=== PATIENT | male | born 1940 | race Caucasian/White ===

== ENCOUNTER 2024-12-08 00:22 | Inpatient (IN) ==
--- NOTE | 2024-12-08 01:10 | Emergency Department Note ---
Impression & Plan Acute upper GI bleed, Orthostasis, Acute hypotension, Elevated troponin Admit to the [facility] ED Provider Note NAME: ELY SHELTON AGE: 84 SEX: Male INFORMANT: Patient ED PROVIDER(S): Savana Ruvalcaba DO CHIEF COMPLAINT: near syncope and hypotension PLAN: Disposition: Admit to the [facility] MEDICAL DECISION MAKING: this is an 84-year-old male patient who presents to the emergency department with episodes of near syncope and hypotension. Patient explains that every time he sits up or stands up he becomes extremely lightheaded and nearly passes out. The symptoms are new for the patient today. He does describe decreased oral intake today but otherwise his fluid intake have been normal. He denies any new medications. He denies any diarrhea or discoloration to his stools. Laboratory studies upper respiratory bio fire testing was negative. White blood cell count was 11.1. Hemoglobin was low at 9.7. Platelet count was 126. BUN was 98 and creatinine was 1.98 which is concerning for significant dehydration and/or GI bleeding. Glucose was 217. Troponin was elevated at 33.5. EKG was performed and revealed A-fib with rapid ventricular response. The patient does have a history of atrial fibrillation and takes Eliquis. Patient has extreme orthostasis, especially upon standing when blood pressure drops as low as 60/40. Patient was bolused with a total of 1500ml of normal saline solution successful. Patient was typed and screened for packed red blood cells. Patient was given a dose of IV Pepcid and IV Protonix. Rectal exam revealed melena. I discussed the case with the [facility]ist and they will evaluate for further inpatient care. They requested CT scanning of the abdomen/pelvis which is pending. Care/management discussed with: textile conversion manager and [facility] Triage Nursing notes: reviewed and agree with them. Vital Signs: reviewed and remarkable for hypotension Additional History obtained from: Patient's who is at the bedside Chronic Medical/Social Conditions affecting care: Atrial fibrillation on Eliquis Differential Diagnosis: Orthostasis, medication side effects, dehydration, GI bleeding, cardiac dysrhythmia, cardiac ischemia Diagnostics, independently interpreted by me: ECG: atrial fibrillation with a rapid ventricular response at a rate of [address] segment elevation or signs of ischemia Cardiac Monitoring: A-fib at a rate of 98 Imaging studies: CT scan of the abdomen/pelvis: Pending HPI: 84 year old Male arrives for evaluation of near syncope and hypotension. around noontime yesterday, the patient developed some nausea and abdominal cramping. He noted that every time he stood up he developed lightheadedness and nearly passed out. Tonight, the patient attempted to get up to go to the bathroom and was so weak that he almost passed out. EMS was called and when they tried to stand the patient up, his blood pressure dropped to 60/40 and he was near syncopal. PAST MEDICAL HISTORY: See Below, PAST SURGICAL HISTORY: See Below, SOCIAL HISTORY: See Below, HOME MEDICATIONS: See list ALLERGIES: None VITALS: See Below PHYSICAL EXAMINATION: HEENT: Head - normocephalic and atraumatic. Pupils are equal, round, and reactive to light. Extraocular eye muscles are intact, and sclera are anicteric. Nose - moist nasal mucosa without discharge. Mouth - moist buccal mucosa. Oropharynx is nonerythematous and there is no tonsillar exudate or edema noted. Neck: Supple; no JVD or cervical lymphadenopathy Heart: irregularly irregular rhythm There is a normal S1 and S2 with no murmurs, clicks, or gallops appreciated. Lungs: Clear to auscultation bilaterally with no wheezes, rales, or rhonchi. Abdomen: Soft, completely nontender, nondistended, with good bowel sounds. There are no palpable pulsatile masses or hepatosplenomegaly. There is no guarding, rigidity, or rebound noted. Extremities: No evidence of cyanosis, clubbing, or edema. There are easily palpable peripheral pulses. Skin: Pale,warm and dry with good turgor and no rashes. Emergency department treatment: teletypesetter monitor, IV normal saline bolus, type and cross, IV Protonix, IV Pepcid Emergency Department course: The patient was evaluated in room A-2. A complete history and physical was performed. An order was placed for continuous cardiac monitoring. Patient was in atrial fibrillation at a rate of 98. Twelve-lead EKG was obtained. Patient was significantly hypotensive at times and was bolused with a total of 1500 cc of saline. With any type of change in body position, the patient will become orthostatic. Heme testing of the patient's stools were positive for melena. The patient was typed and screened for blood. I reviewed results with the patient and his . He was given a dose of IV Pepcid and IV Protonix. I discussed the case with the [facility] Hospitalist and they will evaluate for further inpatient care. Past Med/Surg History Problem List (Updated 12/08/24 @ 18:08 by Savana Ruvalcaba DO) Elevated troponin (Acute) Acute hypotension (Acute) Orthostasis (Acute) Acute upper GI bleed (Acute) Coffee ground emesis Melena Near syncope Upper GI bleed Orthostatic hypotension Medical History Type 2 diabetes mellitus diet controlled, no meds Constipation Atrial fibrillation dx Jun 2024 s/p mitral repair > no pacer > follows with Dr. 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 > [facility] [place]x [place] valve [place] [facility] 02, [address] Social History Smoking Status: Never smoker Second Hand Exposure: No; Do You Dip or Chew Tobacco: No; Hx Alcohol Use: Yes Hx Substance Use: No Preferred Language: Ukrainian Communication Ability: Effective Veterinary Meat Inspector Required: No Beliefs That Will Affect Care: None Current Living Situation: Other Current Living Situation Comment: [facility] with current occupation: Retired Other Information That Helps Us Care for You: No Feels Safe at Home: Yes Safety Concerns: Feels Safe At This Time Assistive Devices: None Allergies Allergies Allergy/AdvReac Type Severity Reaction Status Date / Time No Known Allergies Allergy Verified 10/27/24 06:20 Home Meds Home Medications Medication Instructions Recorded Confirmed allopurinol 300 mg tablet 300 mg PO QAM 10/07/24 10/27/24 apixaban 2.5 mg tablet (Eliquis) 2.5 mg PO BID 10/07/24 10/27/24 ascorbic acid (vitamin C) 1,000 mg 1 g PO QAM 10/07/24 10/27/24 tablet (Vitamin C) atorvastatin 80 mg tablet 80 mg PO HS 10/07/24 10/27/24 losartan 25 mg tablet 25 mg PO PM 10/07/24 10/27/24 metoprolol succinate 25 mg 12.5 mg PO HS 10/07/24 10/27/24 tablet,extended release 24 hr ujrjkpuo-pjb-khhbia 5 mg-zeaxanth 1 cap PO QAM 10/07/24 10/27/24 1 mg-bilberry 7.5 mg-herbal capsule (Macular Health Formula) zgdijgnr-[id number] 300 mcg-K 60 1 tab PO QAM 10/07/24 10/27/24 mcg-lycop 600 mcg-lutein 300 mcg tablet (Centrum Silver Men) psyllium seed (sugar) oral powder 1 tbsp PO PM 10/07/24 10/20/24 (Metamucil (sugar) oral powder) ranolazine 500 mg tablet,extended 500 mg PO BID 10/07/24 10/27/24 release,12 hr Results & Data (ED) Vital Signs Vital Signs - 24 hr 12/08/24 00:18 12/08/24 00:18 12/08/24 00:18 Temperature 36.4 C L 36.4 C L Temperature Source Oral Oral Pulse Rate 89 Pulse Rate [Right Finger] 91 H Pulse Rate from SpO2 Sensor Pulse Rhythm Irregular Pulse Rhythm [Right Finger] Irregular Pulse Strength Normal Pulse Strength [Right Finger] Normal Respiratory Rate 18 18 Respiratory Effort / Characteristics Non-Labored Spontaneous Non-Labored Spontaneous Respiratory Depth Normal Normal Respiratory Pattern Regular Regular Blood Pressure 122/87 Blood Pressure [Right Arm] 122/87 Blood Pressure Mean 98 Blood Pressure Mean [Right Arm] 98 Blood Pressure Position Lying Blood Pressure Position [Right Arm] Lying Pulse Oximetry 98 98 Oxygen Delivery Method Room Air Room Air Room Air Sepsis Recent Fever Within 48 Hours No Sepsis New/Unexplained Change in Mental Status No Sepsis Action Taken by Nursing No Action Required 12/08/24 00:27 12/08/24 00:31 12/08/24 00:31 Temperature Temperature Source Pulse Rate 101 H Pulse Rate [Right Finger] Pulse Rate from SpO2 Sensor Pulse Rhythm Pulse Rhythm [Right Finger] Pulse Strength Pulse Strength [Right Finger] Respiratory Rate Respiratory Effort / Characteristics Respiratory Depth Respiratory Pattern Blood Pressure 122/87 122/87 Blood Pressure [Right Arm] Blood Pressure Mean 88 88 Blood Pressure Mean [Right Arm] Blood Pressure Position Blood Pressure Position [Right Arm] Pulse Oximetry Oxygen Delivery Method Sepsis Recent Fever Within 48 Hours Sepsis New/Unexplained Change in Mental Status Sepsis Action Taken by Nursing 12/08/24 00:36 12/08/24 00:57 12/08/24 01:03 Temperature Temperature Source Pulse Rate 100 H 91 H Pulse Rate [Right Finger] Pulse Rate from SpO2 Sensor 85 89 Pulse Rhythm Pulse Rhythm [Right Finger] Pulse Strength Pulse Strength [Right Finger] Respiratory Rate 25 H 25 H Respiratory Effort / Characteristics Respiratory Depth Respiratory Pattern Blood Pressure 101/65 Blood Pressure [Right Arm] Blood Pressure Mean 76 Blood Pressure Mean [Right Arm] Blood Pressure Position Blood Pressure Position [Right Arm] Pulse Oximetry 100 99 Oxygen Delivery Method Sepsis Recent Fever Within 48 Hours Sepsis New/Unexplained Change in Mental Status Sepsis Action Taken by Nursing 12/08/24 01:03 12/08/24 01:03 12/08/24 01:06 Temperature Temperature Source Pulse Rate 92 H Pulse Rate [Right Finger] Pulse Rate from SpO2 Sensor 94 H Pulse Rhythm Pulse Rhythm [Right Finger] Pulse Strength Pulse Strength [Right Finger] Respiratory Rate 20 Respiratory Effort / Characteristics Respiratory Depth Respiratory Pattern Blood Pressure 101/65 101/65 Blood Pressure [Right Arm] Blood Pressure Mean 76 76 Blood Pressure Mean [Right Arm] Blood Pressure Position Blood Pressure Position [Right Arm] Pulse Oximetry 97 Oxygen Delivery Method Sepsis Recent Fever Within 48 Hours Sepsis New/Unexplained Change in Mental Status Sepsis Action Taken by Nursing 12/08/24 01:10 12/08/24 01:15 12/08/24 01:16 Temperature Temperature Source Pulse Rate 90 100 H Pulse Rate [Right Finger] Pulse Rate from SpO2 Sensor 96 H Pulse Rhythm Regular Pulse Rhythm [Right Finger] Pulse Strength Pulse Strength [Right Finger] Respiratory Rate 18 20 Respiratory Effort / Characteristics Respiratory Depth Respiratory Pattern Blood Pressure 91/33 L Blood Pressure [Right Arm] Blood Pressure Mean 63 Blood Pressure Mean [Right Arm] Blood Pressure Position Blood Pressure Position [Right Arm] Pulse Oximetry 98 98 Oxygen Delivery Method Room Air Sepsis Recent Fever Within 48 Hours Sepsis New/Unexplained Change in Mental Status Sepsis Action Taken by Nursing 12/08/24 01:18 12/08/24 01:29 12/08/24 01:30 Temperature Temperature Source Pulse Rate 89 105 H Pulse Rate [Right Finger] Pulse Rate from SpO2 Sensor 94 H 82 Pulse Rhythm Pulse Rhythm [Right Finger] Pulse Strength Pulse Strength [Right Finger] Respiratory Rate 27 H 23 Respiratory Effort / Characteristics Respiratory Depth Respiratory Pattern Blood Pressure 89/64 L Blood Pressure [Right Arm] Blood Pressure Mean 67 Blood Pressure Mean [Right Arm] Blood Pressure Position Blood Pressure Position [Right Arm] Pulse Oximetry 97 99 Oxygen Delivery Method Sepsis Recent Fever Within 48 Hours Sepsis New/Unexplained Change in Mental Status Sepsis Action Taken by Nursing 12/08/24 01:30 12/08/24 02:18 Temperature Temperature Source Pulse Rate Pulse Rate [Right Finger] 98 H Pulse Rate from SpO2 Sensor Pulse Rhythm Pulse Rhythm [Right Finger] Regular Pulse Strength Pulse Strength [Right Finger] Normal Respiratory Rate 18 Respiratory Effort / Characteristics Non-Labored Spontaneous Respiratory Depth Normal Respiratory Pattern Regular Blood Pressure 105/57 L Blood Pressure [Right Arm] 108/48 L Blood Pressure Mean 71 Blood Pressure Mean [Right Arm] 68 Blood Pressure Position Blood Pressure Position [Right Arm] Lying Pulse Oximetry 98 Oxygen Delivery Method Room Air Sepsis Recent Fever Within 48 Hours Sepsis New/Unexplained Change in Mental Status Sepsis Action Taken by Nursing Laboratory Data 12/08/24 11:50 12/08/24 00:30 Lab Results 12/08/24 12/08/24 12/08/24 Range/Units 00:30 01:04 02:52 WBC 11.13 H (4.8-10.8) K/ul RBC 3.00 L (4.70-6.10) M/uL Hgb 9.7 L (14.0-18.0) g/dl Hct 29.1 L (42.0-52.0) % MCV 97.0 (80.0-100.0) fL MCH 32.3 (25.0-34.0) pg MCHC 33.3 (32.0-36.0) g/dL RDW Std Deviation 51.2 H (36.4-46.3) fL RDW Coeff of Jeanmarie 14.6 H (11.5-14.5) % Plt Count 126 L (130-400) K/uL MPV 11.8 (9.4-12.4) fL Immature Gran % (Auto) 0.4 % Neut % (Auto) 75.9 % Lymph % (Auto) 17.1 % [place] % (Auto) 6.1 % Eos % (Auto) 0.1 % Baso % (Auto) 0.4 % Neut # (Auto) 8.45 H (1.40-6.50) K/uL Lymph # (Auto) 1.90 (1.20-3.40) K/uL [place] # (Auto) 0.68 H (0.11-0.59) K/uL Eos # (Auto) 0.01 (0.00-0.50) K/uL Baso # (Auto) 0.04 (0.00-0.20) K/uL Immature Gran # (Auto) 0.05 (0.01-0.20) K/uL Sodium 141 (136-145) mmol/L Potassium 5.2 H (3.5-5.1) mmol/L Chloride 111 H (98-107) mmol/L Carbon Dioxide 23 (21-32) mmol/L Anion Gap 7 (3-11) BUN 98 H (6-23) mg/dl Creatinine 1.98 H (0.6-1.4) mg/dl Est Cr Clr Drug Dosing 15.0 ml/min eGFR 32.49 BUN/Creatinine Ratio 49.5 H (10-20) Glucose 217 H (70-99(Fasting)) mg/dl Calcium 9.0 (8.6-10.3) mg/dl Magnesium 1.8 (1.7-2.4) mg/dl Total Bilirubin 1.1 H (0.2-1.0) mg/dl AST 13 (13-39) U/L ALT 12 (7-52) U/L Alkaline Phosphatase 59 (34-104) U/L Troponin I High Sens 33.5 H 41.9 H (0-20) pg/ml Total Protein 5.2 L (6.0-8.3) gm/dl Albumin 3.4 (3.4-5.0) gm/dl Globulin 1.8 L (2.5-4.0) gm/dl Albumin/Globulin Ratio 1.9 (0.9-2) Urine Color Yellow Urine Appearance Clear (Clear) Urine pH 7.0 (4.5-7.5) Ur Specific [place] 1.017 (1.000-1.030) Urine Protein 1+ H (Negative) Urine Glucose (UA) Negative (Negative) Urine Ketones Negative (Negative) Urine Blood Negative (Negative) Urine Nitrite Negative (Negative) Urine Bilirubin Negative (Negative) Urine Urobilinogen Negative (Negative) Ur Leukocyte Esterase Negative (Negative) Urine WBC (Auto) 0-5 (0-5) /hpf Urine RBC (Auto) 0-2 (0-2) /hpf U Hyaline Cast (Auto) 0-2 (0-2) /lpf U Epithel Cells (Auto) 0-2 (0-2) /hpf Urine Bacteria (Auto) None Seen (None Seen) Adenovirus (PCR) Not Detected (NotDetected) B. pertussis DNA (PCR) Not Detected (NotDetected) B.parapertussis DNA PCR Not Detected (NotDetected) C. pneumoniae DNA (PCR) Not Detected (NotDetected) Coronavirus OC43 (PCR) Not Detected (NotDetected) Coronavirus HKU1 (PCR) Not Detected (NotDetected) Coronavirus 229E (PCR) Not Detected (NotDetected) SARS-CoV-2 (PCR) Not Detected (NotDetected) Coronavirus NL63 (PCR) Not Detected (NotDetected) Human Metapneumovir PCR Not Detected (NotDetected) Influenza Type A (PCR) Not Detected (NotDetected) Influenza Type B (PCR) Not Detected (NotDetected) M. pneumoniae (PCR) Not Detected (NotDetected) Parainfluenza 1 (PCR) Not Detected (NotDetected) Parainfluenza 2 (PCR) Not Detected (NotDetected) Parainfluenza 3 (PCR) Not Detected (NotDetected) Parainfluenza 4 (PCR) Not Detected (NotDetected) RSV (PCR) Not Detected (NotDetected) Entero/Rhino (PCR) Not Detected (NotDetected) Administered Medications Pantoprazole Sodium 40 mg/ (Dextrose) 100 mls @ 20 mls/hr IV Q5H [facility] Stop: 01/07/25 05:59 Last Admin: 12/08/24 15:28 Dose: 8 mg/hr, 20 mls/hr Documented By: Infusion: 12/08/24 15:28 Dose: Infused Documented By: Admin: 12/08/24 11:07 Dose: 8 mg/hr, 20 mls/hr Documented By: Infusion: 12/08/24 11:04 Dose: Infused Documented By: Admin: 12/08/24 06:04 Dose: 8 mg/hr, 20 mls/hr Documented By: EVY Famotidine (Pepcid 20mg Iv Push) 20 mg in 5 mls @ 2.5 mls/min IV Q12H [facility]N Stop: 01/07/25 17:59 Last Admin: 12/08/24 17:34 Dose: 2.5 mls/min Documented By: MICHELLE Sodium Chloride (Nss) 1,000 mls @ 80 mls/hr IV .[id number] CYN Stop: 12/09/24 05:20 Last Admin: 12/08/24 17:27 Dose: 80 mls/hr Documented By: Infusion: 12/08/24 17:27 Dose: Infused Documented By: Admin: 12/08/24 06:06 Dose: 80 mls/hr Documented By: EVY Discontinued Medications Sodium Chloride (Nss) 1,000 mls @ 999 mls/hr IV .Q1H1M ONE Stop: 12/08/24 02:51 Last Infusion: 12/08/24 03:15 Dose: Infused Documented By: IDWendy Admin: 12/08/24 01:55 Dose: 999 mls/hr Documented By: LEO Pantoprazole Sodium 80 mg/ (Dextrose) 120 mls @ 480 mls/hr IV ONE STA Stop: 12/08/24 03:01 Last Infusion: 12/08/24 04:37 Dose: Infused Documented By: Admin: 12/08/24 04:21 Dose: 480 mls/hr Documented By: BRENDAN Famotidine (Pepcid 20mg Iv Push) 20 mg in 5 mls @ 2.5 mls/min IV NOW STA Stop: 12/08/24 02:48 Last Admin: 12/08/24 04:21 Dose: 2.5 mls/min Documented By: BRENDAN Sodium Chloride (Nss) 1,000 mls @ 999 mls/hr IV .Q1H1M CYN Stop: 12/08/24 05:45 Last Infusion: 12/08/24 05:38 Dose: Infused Documented By: Admin: 12/08/24 04:43 Dose: 999 mls/hr Documented By: YING Ondansetron HCl (Ondansetron Inj 2 Mg/Ml 2 Ml Vial) Confirm Administered Dose 4 mg .ROUTE .STK-MED ONE Stop: 12/08/24 04:03 Last Admin: 12/08/24 04:42 Dose: 4 mg Documented By: YING Ondansetron HCl (Ondansetron Inj 2 Mg/Ml 2 Ml Vial) 4 mg IV NOW STA Stop: 12/08/24 04:41 Last Admin: 12/08/24 04:44 Dose: Not Given Documented By: YING Imaging Data Radiologist's Impression: Abdomen/Pelvis CT 12/08/24 02:34 EXAM: CT abd pelvis wo con CLINICAL HISTORY: ANEMIA TECHNIQUE: Contiguous axial images were obtained from the level of the diaphragm to the pubic symphysis without intravenous or oral contrast. Coronal and sagittal reconstructions were likewise performed and indicated to increase the sensitivity for detecting clinically relevant pathology. CT scan was performed according to ALARA (as low as reasonable achievable). COMPARISON: No FINDINGS: The visualized lung bases show mild cardiomegaly. Evaluation of the abdominal and pelvic visceral organs is limited without intravenous contrast. The unenhanced liver, spleen, pancreas, and adrenal glands are grossly unremarkable. Few calcific foci noted in the tail of pancreas. Small splenunculus along lower pole of spleen. The gallbladder is present. The kidneys are normal in size and attenuation without obvious calcification. Dilated and tortuous left ureter with mild left hydronephrosis and renal cortical thinning. Bilateral perinephric stranding. Large exophytic cortical cyst of size 4.0 x 4.8cm along the lower pole of left kidney. Mildly prominent left distal ureter. No adenopathy or fluid collections are seen. No evidence of focal or diffuse bowel wall thickening or evidence of bowel obstruction is seen. The appendix is visualized in the right lower quadrant and appears within normal limits. The aorta is normal in caliber. The urinary bladder is normal in contour. Mild eccenteric wall thickening noted along the base of bladder predominantly on left side. Pelvic viscera are grossly unremarkable. No aggressive appearing osseous lesions are identified. IMPRESSION: 1. Eccenteric wall thickening of base of bladder predominantly on left side. Suggest- Correlation with ultrasound of distended bladder. 2. Left moderate to gross hydroureteronephrosis with no radiodense left ureteric calculus. 3. Bilateral perinephric stranding. 4. Left renal exophytic cortical cyst at lower pole. Electronically signed by Young Corea 12-08-2024 06:18 AM Discharge Plan Visit Data Chief Complaint: Syncope Stated Complaint: SYNCOPE, HYPOTENSION ED Provider: Savana Ruvalcaba Discharge Problem: Acute upper GI bleed, Orthostasis, Acute hypotension, Elevated troponin Patient Disposition: Admitted As Inpatient Discharge Instructions Interventions: ED Discharge Assessment Last Done: 12/08/24 04:25
[2024-12-08 01:25] LABS: Appearance Urine Clear (Clear); Bacteria Urine Automated None Seen (None Seen); Bilirubin Urine Negative (Negative); Blood Urine Negative (Negative); Cast Urine Automated 0-2 /lpf (0-2); Color Urine Yellow; Epithelial Cell Urine Auto 0-2 /hpf (0-2); Glucose Urine UA Negative (Negative); Ketones Urine Negative (Negative); Leukocyte Esterase Urine Negative (Negative); Nitrite Urine Negative (Negative); Protein Urine 1+ (Negative); RBC Urine Automated 0-2 /hpf (0-2); Specific Gravity Urine 1.017 (1.000-1.030); Urobilinogen Urine Negative (Negative); WBC Urine Automated 0-5 /hpf (0-5)
[2024-12-08 01:38] LABS: Basophils # (auto) 0.04 K/uL (0.00-0.20); Basophils % (auto) 0.4 %; Eosinophils # (auto) 0.01 K/uL (0.00-0.50); Eosinophils % (auto) 0.1 %; Hematocrit (blood only) 29.1 % (42.0-52.0); Hemoglobin 9.7 g/dl (14.0-18.0); Immature Granulocytes # (auto) 0.05 K/uL (0.01-0.20); Immature Granulocytes % (auto) 0.4 %; Lymphocytes % (auto) 17.1 %; Mean Corpuscular Hemoglobin 32.3 pg (25.0-34.0); Mean Corpuscular Hgb Conc 33.3 g/dL (32.0-36.0); Mean Platelet Volume 11.8 fL (9.4-12.4); Monocytes # (auto) 0.68 K/uL (0.11-0.59); Monocytes % (auto) 6.1 %; Neutrophils # (auto) 8.45 K/uL (1.40-6.50); Neutrophils % (auto) 75.9 %; Platelet Count 126 K/uL (130-400); RDW Coefficient of Variation 14.6 % (11.5-14.5); RDW Standard Deviation 51.2 fL (36.4-46.3); White Blood Count 11.13 K/ul (4.8-10.8)
[2024-12-08 01:41] LABS: Albumin Globulin Ratio 1.9 (0.9-2); Albumin Level 3.4 gm/dl (3.4-5.0); BUN Creatinine Ratio 49.5 (10-20); Bilirubin,Total 1.1 mg/dl (0.2-1.0); Globulin 1.8 gm/dl (2.5-4.0); Magnesium 1.8 mg/dl (1.7-2.4); Potassium 5.2 mmol/L (3.5-5.1); Total Protein 5.2 gm/dl (6.0-8.3)
[2024-12-08 01:48] LABS: Troponin I High Sensitivity 33.5 pg/ml (0-20)
[2024-12-08] MEDS: SODIUM CHLORIDE 0.9% 1,000 ML IV ONE (01:55)
[2024-12-08 02:17] LABS: Adenovirus PCR Not Detected (NotDetected); Bordetella parapertussis PCR Not Detected (NotDetected); Bordetella pertussis PCR Not Detected (NotDetected); Chlamydia pneumoniae PCR Not Detected (NotDetected); Coronavirus 229E PCR Not Detected (NotDetected); Coronavirus CoV-2 (COVID19)PCR Not Detected (NotDetected); Coronavirus HKU1 PCR Not Detected (NotDetected); Coronavirus NL63 PCR Not Detected (NotDetected); Coronavirus OC43PCR Not Detected (NotDetected); Human Metapneumovirus PCR Not Detected (NotDetected); Influenza A PCR Not Detected (NotDetected); Influenza B PCR Not Detected (NotDetected); Mycoplasma pneumoniae PCR Not Detected (NotDetected); Parainfluenza Virus 1 PCR Not Detected (NotDetected); Parainfluenza Virus 2 PCR Not Detected (NotDetected); Parainfluenza Virus 3 PCR Not Detected (NotDetected); Parainfluenza Virus 4 PCR Not Detected (NotDetected); Respiratory Syncytial VirusPCR Not Detected (NotDetected); Rhinovirus/Enterovirus PCR Not Detected (NotDetected)
--- NOTE | 2024-12-08 02:43 | History & Physical Report ---
"Date of Service December 08, 2024 Assessment & Plan (1) Type 2 diabetes mellitus: (2) Atrial fibrillation: (3) Hypertension: (4) Hyperlipidemia: (5) Orthostatic hypotension: (6) Upper GI bleed: (7) Near syncope: Plan Patient is an 84 y/o M w/ PMHx of Gout, HTN, HLD, CKD, A-fib after recent MV repair w/ MV clip implantation (on Eliquis), DM-2, and CAD (CABG x3) who was admitted due to significant orthostatism with subsequent near syncope today. 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 - CTAP also ordered to r/o retroperitoneal bleed give patient had been on Eliquis 2.5 mg bid for a-fib; still pending - Will admit patient to PCU - Place patient NPO - Protonix gtt started; also added pepcid bid IV - s/p 1L bolus x2 in the ED; Will give mIVF @ 80 ml/hr - H&H q6h to trend - Type and screen; Transfusion threshold of hgb <8 given current bleed and hypotension Blood consent taken and in patient's chart; Will hold 2 units PRBC - Will see about possibly reversing Eliquis effect - GI consulted. Would appreciate their input A-fib - Currently rate controlled - Will hold metoprolol in the setting of hypotension -Will hold Eliquis in the setting of UGIB Elevated troponins - Troponins of ~33 which increased to ~41 in 2-hr re-check - No chest pain or anginal sxs - Likely demand ischemia given hypotension and current UGIB - Will trend to peak HTN - Hold home meds DM-2 - No home insulin and not currently on meds - Will add Hgb A1c to am labs CKD - PCP office labs w/ Cr of 1.8; no other labs here to establish baseline - Cr on admission was 1.98 - Possible pre-renal MARLIN - Monitor am labs HLD | CAD - Hold atorvastatin while NPO Dispo: PCU Fluids: NSS @125 ml/hr Diet: NPO VTE ppx: SCD; chemoprophylaxis contraindicated in the setting of UGIB Code Status: DNR/DNI History of Present Illness Chief Complaint: Near syncope Primary Care Provider: Venus Tsang DO Patient is an 84 y/o M w/ PMHx of Gout, HTN, HLD, CKD, A-fib after recent MV repair w/ MV clip implantation (on Eliquis), DM-2, and CAD (CABG x3) who was arrived to the ED after experiencing near syncopal episode at home while walking to the bathroom. Patient states that, since early in the morning, patient had been feeling clammy, warm, and nauseous when standing. At around 7 pm, his symptoms worsened and when he was going to the bathroom developed nausea/diaphoresis/flushing/weakness and felt like he was going to pass out. On the days leading to this, patient had been having similar but more mild sxs, and states he had noted his stool had been darker than usual with today having a bm that was almost black. Denies having epigastric pain, decreased PO intake, fevers, chills, weakness on one side og his body, difficulty with speech, chest pain, SOB/[place], palpitations, or any other systemic sxs. ED Course: Given 1 L NSS bolus, Protonix 80 mg IV, Pepcid 20 mg IV; patient with episode of coffee ground emesis during my evaluation, after this 1L LR bolus given as well as dose of Zofran Labs/Imaging: CBC w/ leukocytosis of 11 with neutrophilic predominance, hgb of 9.7, plt of 126. CMP with no significant electrolyte abnormalities, Cr of 1.98, BUN of 98, and bsg of 217. Troponin of 33.5 which increased to 41.9 in 2-hour recheck. Respiratory biofire negative. CTAP ordered but not yet done at this time. Medical History: [Reviewed] Medications: [Reviewed] Surgical History: [Reviewed] Family history: [Reviewed] Allergies: [Reviewed] Social History: [Reviewed] Code Status: DNR/DNI Allergies Allergy/AdvReac Type Severity Reaction Status Date / Time No Known Allergies Allergy Verified 10/27/24 06:20 Home Medications Medication Instructions Recorded Confirmed Type allopurinol 300 mg tablet 300 mg PO QAM 10/07/24 10/27/24 History apixaban 2.5 mg tablet (Eliquis) 2.5 mg PO BID 10/07/24 10/27/24 History ascorbic acid (vitamin C) 1,000 mg 1 g PO QAM 10/07/24 10/27/24 History tablet (Vitamin C) atorvastatin 80 mg tablet 80 mg PO HS 10/07/24 10/27/24 History losartan 25 mg tablet 25 mg PO PM 10/07/24 10/27/24 History metoprolol succinate 25 mg 12.5 mg PO HS 10/07/24 10/27/24 History tablet,extended release 24 hr [id number]-[id number] 5 mg-zeaxanth 1 cap PO QAM 10/07/24 10/27/24 History 1 mg-bilberry 7.5 mg-herbal capsule (Macular Health Formula) cdygsfdp-[id number] 300 mcg-K 60 1 tab PO QAM 10/07/24 10/27/24 History mcg-lycop 600 mcg-lutein 300 mcg tablet (Centrum Silver Men) psyllium seed (sugar) oral powder 1 tbsp PO PM 10/07/24 10/20/24 History (Metamucil (sugar) oral powder) ranolazine 500 mg tablet,extended 500 mg PO BID 10/07/24 10/27/24 History release,12 hr Past Med/Surg History Problem List (Updated 12/08/24 @ 18:08 by Savana Ruvalcaba DO) Elevated troponin (Acute) Acute hypotension (Acute) Orthostasis (Acute) Acute upper GI bleed (Acute) Coffee ground emesis Melena Near syncope Upper GI bleed Orthostatic hypotension Medical History Type 2 diabetes mellitus diet controlled, no meds Constipation Atrial fibrillation dx Jun 2024 s/p mitral repair > no pacer > follows with Dr. Hendrix Hypertension Hyperlipidemia History of COVID-19 2020 Surgical History Hx of right cataract extraction Hx of transurethral resection of prostate 2004 History of colonoscopy [place] teeth extracted History of tonsillectomy History of cardiac cath last one approx 2013 S/P CABG x 19 January 2005 > [facility] Hx of mitral valve repair [facility] [place]> Jul 02, [address] Social History Smoking Status: Never smoker Second Hand Exposure: No; Do You Dip or Chew Tobacco: No; Hx Alcohol Use: Yes Hx Substance Use: No Preferred Language: Guamanian Communication Ability: Effective 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 Required: No Beliefs That Will Affect Care: None Current Living Situation: Other Current Living Situation Comment: [facility] with current occupation: Retired Other Information That Helps Us Care for You: No Feels Safe at Home: Yes Safety Concerns: Feels Safe At This Time Assistive Devices: None Review of Systems Review of Systems: As per HPI Physical Exam Physical Exam: GENERAL: AAOx4, afebrile, calm and cooperative, afebrile, NAD HEAD: AT, NC EYES: DON, EOM intact THROAT: normal to visual inspection CHEST: symmetric chest expansions with respirations CARDIO: irregular rhythm, no r/m/g PULMONARY: CTA, normal respiratory effort, no respiratory distress GI: soft, NT/ND : no power EXTREMITIES: no swelling or calf tenderness in b/l LE SKIN: no rashes, hematomas, lacerations, or other lesions Results & Data Results & Data Vital Signs (Past 12 Hours) Vital Signs Temp Pulse Pulse Resp BP BP Pulse Ox 12/08/24 01:30 105/57 L 12/08/24 01:30 105 H 23 99 12/08/24 01:29 89/64 L 12/08/24 01:18 89 27 H 97 12/08/24 01:16 91/33 L 12/08/24 01:15 100 H 20 98 12/08/24 01:10 90 18 98 12/08/24 01:06 92 H 20 97 12/08/24 01:03 101/65 12/08/24 01:03 101/65 12/08/24 01:03 101/65 12/08/24 00:57 91 H 25 H 99 12/08/24 00:36 100 H 25 H 100 12/08/24 00:31 122/87 12/08/24 00:31 122/87 12/08/24 00:27 101 H 12/08/24 00:18 36.4 C L 91 H 18 122/87 98 12/08/24 00:18 12/08/24 00:18 36.4 C L 89 18 122/87 98 O2 Del Method 12/08/24 01:30 12/08/24 01:30 12/08/24 01:29 12/08/24 01:18 12/08/24 01:16 12/08/24 01:15 12/08/24 01:10 Room Air 12/08/24 01:06 12/08/24 01:03 12/08/24 01:03 12/08/24 01:03 12/08/24 00:57 12/08/24 00:36 12/08/24 00:31 12/08/24 00:31 12/08/24 00:27 12/08/24 00:18 Room Air 12/08/24 00:18 Room Air 12/08/24 00:18 Room Air Supervising Physician Co-Signing Physician Notes Attending addendum: I have physically seen this patient, have supervised the medical residents activities, and agree with the H&P unless as otherwise noted. Assessment and Plan: The patient is a 84-year-old male with a past medical history including gout, hypertension, hyperlipidemia, CKD, atrial fibrillation post recent MV repair with MV clip implantation chronically on Eliquis now, diabetes mellitus type 2, CAD, and CABG x 2. He was found to be hypotensive at home today, with blood pressure as low as 60/40, was near syncopal, was brought to the emergency department by EMS. Upper GI bleed/hypotension- The patient will be admitted to telemetry for serial cardiac enzymes, serial EKG's, cardiac rhythm monitoring and a 2-D echocardiogram with Dopplers. N.p.o. Hemoccult all stools Hold Eliquis, ranolazine, metoprolol succinate, and losartan due to concern regarding bleeding and regarding hypotension Type and screen CT scan abdomen pelvis ordered to assess for possible retroperitoneal bleed Pantoprazole drip H&H every 6 hours as noted Status post 2 L normal saline bolus in the ED NSS 80 mL/h Consult gastroenterology regarding upper GI bleed Atrial fibrillation/hypertension/troponin elevation- Holding Eliquis, ranolazine, metoprolol and losartan as noted Initial troponin 33.5, with follow-up pending Diabetes mellitus-check hemoglobin A1c Accu-Cheks with NovoLog SSI CKD- Creatinine 1.98 admission, with base 1.8 Follow serially Hyperlipidemia- Temporarily holding atorvastatin while n.p.o. Resident Activity Tracking Resident Involvement: Resident Care Provided Care Provided: Adult Hospital Medicine"
[2024-12-08] MEDS: FAMOTIDINE 20MG IV PUSH 20 MG/5 ML SYR IV STA (04:21)
[2024-12-08] MEDS: PANTOprazole 80 MG in DEXTROSE 5% 100 ML IV STA (04:21)
[2024-12-08] MEDS: ONDANSETRON INJ 2 MG/ML 2 ML VIAL ONE (04:42)
[2024-12-08] MEDS: SODIUM CHLORIDE 0.9% 1,000 ML IV SCH ×2 (04:43→06:06)
[2024-12-08] MEDS: ONDANSETRON INJ 2 MG/ML 2 ML VIAL IV STA (04:44)
[2024-12-08] MEDS ORDERED: SODIUM CHLORIDE 0.9% 50 ML IV PRN ×2 (05:21→12:56)
[2024-12-08] MEDS ORDERED: ONDANSETRON INJ 2 MG/ML 2 ML VIAL IV PRN (05:21)
[2024-12-08] MEDS ORDERED: PANTOPRAZOLE BOLUS/DRIP IV STA (05:21)
[2024-12-08] MEDS ORDERED: SODIUM CHLORIDE 0.9% 100 ML IV PRN ×2 (05:21→12:56)
[2024-12-08] MEDS ORDERED: ACETAMINOPHEN 325 MG TAB PO PRN (05:21)
[2024-12-08] MEDS ORDERED: PANTOprazole 80 MG in DEXTROSE 5% 100 ML IV ONE (05:21)
[2024-12-08] MEDS ORDERED: POLYETHYLENE (MIRALAX) 17 GM PACK PO PRN (05:21)
[2024-12-08] MEDS: PANTOprazole 40 MG in DEXTROSE 5% MINI-B 100 ML IV SCH (06:04)
--- NOTE | 2024-12-08 06:19 | CT Scan Report ---
EXAM: CT abd pelvis wo con CLINICAL HISTORY: ANEMIA TECHNIQUE: Contiguous axial images were obtained from the level of the diaphragm to the pubic symphysis without intravenous or oral contrast. Coronal and sagittal reconstructions were likewise performed and indicated to increase the sensitivity for detecting clinically relevant pathology. CT scan was performed according to ALARA (as low as reasonable achievable). COMPARISON: No FINDINGS: The visualized lung bases show mild cardiomegaly. Evaluation of the abdominal and pelvic visceral organs is limited without intravenous contrast. The unenhanced liver, spleen, pancreas, and adrenal glands are grossly unremarkable. Few calcific foci noted in the tail of pancreas. Small splenunculus along lower pole of spleen. The gallbladder is present. The kidneys are normal in size and attenuation without obvious calcification. Dilated and tortuous left ureter with mild left hydronephrosis and renal cortical thinning. Bilateral perinephric stranding. Large exophytic cortical cyst of size 4.0 x 4.8cm along the lower pole of left kidney. Mildly prominent left distal ureter. No adenopathy or fluid collections are seen. No evidence of focal or diffuse bowel wall thickening or evidence of bowel obstruction is seen. The appendix is visualized in the right lower quadrant and appears within normal limits. The aorta is normal in caliber. The urinary bladder is normal in contour. Mild eccenteric wall thickening noted along the base of bladder predominantly on left side. Pelvic viscera are grossly unremarkable. No aggressive appearing osseous lesions are identified. IMPRESSION: 1. Eccenteric wall thickening of base of bladder predominantly on left side. Suggest- Correlation with ultrasound of distended bladder. 2. Left moderate to gross hydroureteronephrosis with no radiodense left ureteric calculus. 3. Bilateral perinephric stranding. 4. Left renal exophytic cortical cyst at lower pole. Electronically signed by Young Corea 12-08-2024 06:18 AM
[2024-12-08 06:27] LABS: Hematocrit (blood only) 25.8 % (42.0-52.0); Hemoglobin 8.7 g/dl (14.0-18.0)
--- NOTE | 2024-12-08 10:53 | Gastrointestinal Consultation ---
Date of Consultation December 08, 2024 Assessment & Plan (1) Melena: 84 year old male with history of HTN, dyslipidemia, CKD, A-fib, MV repair w/ MV clip implantation, T2DM, CAD s/p CABG x3 anticoagulated on Eliquis admitted w/ syncopal event, reports melena at home and an isolated episode of coffee ground emesis in the ED. He has remained hemodynamically stable w/ BP 118/64, HGB 8.7,BUN 98/AUDIO VISUAL ENGINEER 1.98. - Hold Eliquis - No NSAIDs - IV Fluid replacement - Replace electrolytes - IV PPI bolus/drip - Trend H&H - Monitor and document GI output - Transfuse PRN per primary service - Tentative plan for EGD Sunday unless urgently indicated We appreciate assistance in the management of any serological abnormality and corrections to include: hemoglobin >7, INR <2, platelets >50,000, potassium levels >3.5 but <5.3, and sodium levels within 5 points of the reference range prior to endoscopic evaluation. Thank you for allowing us to participate in the care of this patient. Please call with any acute changes, questions or concerns. Please see addendum below with additional recommendation from my supervising physician. I spent a total of 60 minutes on the date of service in review of patient's record, and previously obtained information in person and appropriate medical visit, discussion and education of plan, with patient and/or caregiver, placing orders for tests/referral/procedures as medically necessary and documentation of pertinent clinical information in patient's medical records for their visit today. (2) Coffee ground emesis: Supervising Physician Co-Signing Physician Notes Agree with notes as provided above by nurse practitioner. Patient has melena. He takes NSAIDs and on Eliquis. Unclear when these melena started though he has been on Eliquis for 2 weeks. He came in with fairly remarkably high BUN suggesting prerenal azotemia and blood in the GI tract. Hemoglobin likely to fall as it is rehydrated. Transfuse as needed. Continue PPI. EGD to evaluate potential source of melena which could include peptic ulcer disease gastric or duodenal AVMs. Neoplasia on the differential. Abdomen relatively benign History of Present Illness Reason for Consultation: melena, hypotension Requesting Physician: Frank Corcoran MD Attending Physician: Frank Corcoran MD History of Present Illness 84 year old male with history of HTN, dyslipidemia, CKD, A-fib,MV repair w/ MV clip implantation, T2DM, CAD s/p CABG x3 anticoagulated on Eliquis admitted w/ syncopal event - GI asked to evaluate for melena. Pt was seen and evaluated, chart reviewed. He notes that he has had some nause and dark stools for maybe 1- 2 days but endorses that he does not often assess his bowel movements. He has not seen any bright red blood in stools and had not had any vomiting or abd pain prior to arrival. In the ED there was report of an episdoe of emesis which was coffee ground in appearance. Notes since arrival to the hospital, no further BM and no further emeiss. Anticoagulated on Eliquis Frequent use of NSAIDs suggests doses of Aleve and advil intermittent throughout the week No ETOH HGB 9.7 --> 8.7 BUN 98 AUDIO VISUAL ENGINEER 1.98 CTAP 2023: 1. Eccenteric wall thickening of base of bladder predominantly on left side. Suggest- Correlation with ultrasound of distended bladder. 2. Left moderate to gross hydroureteronephrosis with no radiodense left ureteric calculus. 3. Bilateral perinephric stranding. 4. Left renal exophytic cortical cyst at lower pole. Colonoscopy 2006: Multiple small polyps in the sigmoid colon. Resected and retrieved. - The examination was otherwise normal. Allergies Allergy/AdvReac Type Severity Reaction Status Date / Time No Known Allergies Allergy Verified 10/27/24 06:20 Home Medications Medication Instructions Recorded Confirmed Type allopurinol 300 mg tablet 300 mg PO QAM 10/07/24 10/27/24 History apixaban 2.5 mg tablet (Eliquis) 2.5 mg PO BID 10/07/24 10/27/24 History ascorbic acid (vitamin C) 1,000 mg 1 g PO QAM 10/07/24 10/27/24 History tablet (Vitamin C) atorvastatin 80 mg tablet 80 mg PO HS 10/07/24 10/27/24 History losartan 25 mg tablet 25 mg PO PM 10/07/24 10/27/24 History metoprolol succinate 25 mg 12.5 mg PO HS 10/07/24 10/27/24 History tablet,extended release 24 hr wmxzaeym-hyz-tmdvmk 5 mg-zeaxanth 1 cap PO QAM 10/07/24 10/27/24 History 1 mg-bilberry 7.5 mg-herbal capsule (Macular Health Formula) nzhhpurv-cf-jymhj 300 mcg-K 60 1 tab PO QAM 10/07/24 10/27/24 History mcg-lycop 600 mcg-lutein 300 mcg tablet (Centrum Silver Men) psyllium seed (sugar) oral powder 1 tbsp PO PM 10/07/24 10/20/24 History (Metamucil (sugar) oral powder) ranolazine 500 mg tablet,extended 500 mg PO BID 10/07/24 10/27/24 History release,12 hr Patient History Medical History Type 2 diabetes mellitus diet controlled, no meds Constipation Atrial fibrillation dx Jun 2024 s/p mitral repair > no pacer > follows with Dr. Hendrix Hypertension Hyperlipidemia History of COVID-2020 Surgical History Hx of right cataract extraction Hx of transurethral resection of prostate 2004 History of colonoscopy [place] teeth extracted History of tonsillectomy History of cardiac cath last one approx 2013 S/P CABG x 19 January 2005 > [facility] Hx of mitral valve repair [facility]> Jul 02, [address] Social History Smoking Status: Never smoker Second Hand Exposure: No; Do You Dip or Chew Tobacco: No; Hx Alcohol Use: Yes Hx Substance Use: No Preferred Language: Filipino Communication Ability: Effective Type Inspector Required: No Beliefs That Will Affect Care: None Current Living Situation: Other Current Living Situation Comment: [facility] with current occupation: Retired Other Information That Helps Us Care for You: No Feels Safe at Home: Yes Safety Concerns: Feels Safe At This Time Assistive Devices: None Review of Systems Review of Systems: All other findings negative except as noted in HPI. Physical Exam Constitutional: WD/WN, vitals as above Respiratory: normal respiratory effort, lungs clear to auscultation Cardiovascular: Rate/Rhythm: regular rate and regular rhythm Gastrointestinal (Abdomen): normal bowel sounds, soft, nontender, no hepatosplenomegaly Skin: no rashes, warm and dry Results & Data Vital Signs (Past 12 Hours) Vital Signs Temp Pulse Pulse Resp BP BP BP 12/08/24 07:59 97.9 F 89 18 118/64 12/08/24 05:40 115 H 12/08/24 05:40 12/08/24 05:40 97.5 F L 93 H 16 129/72 12/08/24 05:21 97.5 F L 93 H 18 129/72 12/08/24 05:21 12/08/24 04:00 109 H 18 111/62 12/08/24 02:18 98 H 18 108/48 L 12/08/24 01:30 105/57 L 12/08/24 01:30 105 H 23 12/08/24 01:29 89/64 L 12/08/24 01:18 89 27 H 12/08/24 01:16 91/33 L 12/08/24 01:15 100 H 20 12/08/24 01:10 90 18 12/08/24 01:06 92 H 20 12/08/24 01:03 101/65 12/08/24 01:03 101/65 12/08/24 01:03 101/65 12/08/24 00:57 91 H 25 H 12/08/24 00:36 100 H 25 H 12/08/24 00:31 122/87 12/08/24 00:31 122/87 12/08/24 00:27 101 H 12/08/24 00:18 97.5 F L 91 H 18 122/87 12/08/24 00:18 12/08/24 00:18 97.5 F L 89 18 122/87 Pulse Ox Pulse Ox O2 Del Method O2 Del Method 12/08/24 07:59 93 Room Air 12/08/24 05:40 12/08/24 05:40 Room Air 12/08/24 05:40 99 Room Air 12/08/24 05:21 99 Room Air 12/08/24 05:21 99 Room Air 12/08/24 04:00 97 Room Air 12/08/24 02:18 98 Room Air 12/08/24 01:30 12/08/24 01:30 99 12/08/24 01:29 12/08/24 01:18 97 12/08/24 01:16 12/08/24 01:15 98 12/08/24 01:10 98 Room Air 12/08/24 01:06 97 12/08/24 01:03 12/08/24 01:03 12/08/24 01:03 12/08/24 00:57 99 12/08/24 00:36 100 12/08/24 00:31 12/08/24 00:31 12/08/24 00:27 12/08/24 00:18 98 Room Air 12/08/24 00:18 Room Air 12/08/24 00:18 98 Room Air Laboratory Results 12/08/24 12/08/24 12/08/24 Range/Units 06:01 03:10 02:52 WBC (4.8-10.8) K/ul RBC (4.70-6.10) M/uL Hgb 8.7 L (14.0-18.0) g/dl Hct 25.8 L (42.0-52.0) % MCV (80.0-100.0) fL MCH (25.0-34.0) pg MCHC (32.0-36.0) g/dL RDW Std Deviation (36.4-46.3) fL RDW Coeff of Jeanmarie (11.5-14.5) % Plt Count (130-400) K/uL MPV (9.4-12.4) fL Immature Gran % (Auto) % Neut % (Auto) % Lymph % (Auto) % [place] % (Auto) % Eos % (Auto) % Baso % (Auto) % Neut # (Auto) (1.40-6.50) K/uL Lymph # (Auto) (1.20-3.40) K/uL [place] # (Auto) (0.11-0.59) K/uL Eos # (Auto) (0.00-0.50) K/uL Baso # (Auto) (0.00-0.20) K/uL Immature Gran # (Auto) (0.01-0.20) K/uL Sodium (136-145) mmol/L Potassium (3.5-5.1) mmol/L Chloride (98-107) mmol/L Carbon Dioxide (21-32) mmol/L Anion Gap (3-11) BUN (6-23) mg/dl Creatinine (0.6-1.4) mg/dl Est Cr Clr Drug Dosing ml/min eGFR BUN/Creatinine Ratio (10-20) Glucose (70-99(Fasting)) mg/dl Calcium (8.6-10.3) mg/dl Magnesium (1.7-2.4) mg/dl Total Bilirubin (0.2-1.0) mg/dl AST (13-39) U/L ALT (7-52) U/L Alkaline Phosphatase (34-104) U/L Troponin I High Sens 41.9 H (0-20) pg/ml Total Protein (6.0-8.3) gm/dl Albumin (3.4-5.0) gm/dl Globulin (2.5-4.0) gm/dl Albumin/Globulin Ratio (0.9-2) Urine Color Urine Appearance (Clear) Urine pH (4.5-7.5) Ur Specific [place] (1.000-1.030) Urine Protein (Negative) Urine Glucose (UA) (Negative) Urine Ketones (Negative) Urine Blood (Negative) Urine Nitrite (Negative) Urine Bilirubin (Negative) Urine Urobilinogen (Negative) Ur Leukocyte Esterase (Negative) Urine WBC (Auto) (0-5) /hpf Urine RBC (Auto) (0-2) /hpf U Hyaline Cast (Auto) (0-2) /lpf U Epithel Cells (Auto) (0-2) /hpf Urine Bacteria (Auto) (None Seen) Adenovirus (PCR) (NotDetected) B. pertussis DNA (PCR) (NotDetected) B.parapertussis DNA PCR (NotDetected) C. pneumoniae DNA (PCR) (NotDetected) Coronavirus OC43 (PCR) (NotDetected) Coronavirus HKU1 (PCR) (NotDetected) Coronavirus 229E (PCR) (NotDetected) SARS-CoV-2 (PCR) (NotDetected) Coronavirus NL63 (PCR) (NotDetected) Human Metapneumovir PCR (NotDetected) Influenza Type A (PCR) (NotDetected) Influenza Type B (PCR) (NotDetected) M. pneumoniae (PCR) (NotDetected) Parainfluenza 1 (PCR) (NotDetected) Parainfluenza 2 (PCR) (NotDetected) Parainfluenza 3 (PCR) (NotDetected) Parainfluenza 4 (PCR) (NotDetected) RSV (PCR) (NotDetected) Entero/Rhino (PCR) (NotDetected) Blood Type O Positive Blood Type Recheck O Positive Antibody Screen NEGATIVE 12/08/24 12/08/24 Range/Units 01:04 00:30 WBC 11.13 H (4.8-10.8) K/ul RBC 3.00 L (4.70-6.10) M/uL Hgb 9.7 L (14.0-18.0) g/dl Hct 29.1 L (42.0-52.0) % MCV 97.0 (80.0-100.0) fL MCH 32.3 (25.0-34.0) pg MCHC 33.3 (32.0-36.0) g/dL RDW Std Deviation 51.2 H (36.4-46.3) fL RDW Coeff of Jeanmarie 14.6 H (11.5-14.5) % Plt Count 126 L (130-400) K/uL MPV 11.8 (9.4-12.4) fL Immature Gran % (Auto) 0.4 % Neut % (Auto) 75.9 % Lymph % (Auto) 17.1 % [place] % (Auto) 6.1 % Eos % (Auto) 0.1 % Baso % (Auto) 0.4 % Neut # (Auto) 8.45 H (1.40-6.50) K/uL Lymph # (Auto) 1.90 (1.20-3.40) K/uL [place] # (Auto) 0.68 H (0.11-0.59) K/uL Eos # (Auto) 0.01 (0.00-0.50) K/uL Baso # (Auto) 0.04 (0.00-0.20) K/uL Immature Gran # (Auto) 0.05 (0.01-0.20) K/uL Sodium 141 (136-145) mmol/L Potassium 5.2 H (3.5-5.1) mmol/L Chloride 111 H (98-107) mmol/L Carbon Dioxide 23 (21-32) mmol/L Anion Gap 7 (3-11) BUN 98 H (6-23) mg/dl Creatinine 1.98 H (0.6-1.4) mg/dl Est Cr Clr Drug Dosing 15.0 ml/min eGFR 32.49 BUN/Creatinine Ratio 49.5 H (10-20) Glucose 217 H (70-99(Fasting)) mg/dl Calcium 9.0 (8.6-10.3) mg/dl Magnesium 1.8 (1.7-2.4) mg/dl Total Bilirubin 1.1 H (0.2-1.0) mg/dl AST 13 (13-39) U/L ALT 12 (7-52) U/L Alkaline Phosphatase 59 (34-104) U/L Troponin I High Sens 33.5 H (0-20) pg/ml Total Protein 5.2 L (6.0-8.3) gm/dl Albumin 3.4 (3.4-5.0) gm/dl Globulin 1.8 L (2.5-4.0) gm/dl Albumin/Globulin Ratio 1.9 (0.9-2) Urine Color Yellow Urine Appearance Clear (Clear) Urine pH 7.0 (4.5-7.5) Ur Specific [place] 1.017 (1.000-1.030) Urine Protein 1+ H (Negative) Urine Glucose (UA) Negative (Negative) Urine Ketones Negative (Negative) Urine Blood Negative (Negative) Urine Nitrite Negative (Negative) Urine Bilirubin Negative (Negative) Urine Urobilinogen Negative (Negative) Ur Leukocyte Esterase Negative (Negative) Urine WBC (Auto) 0-5 (0-5) /hpf Urine RBC (Auto) 0-2 (0-2) /hpf U Hyaline Cast (Auto) 0-2 (0-2) /lpf U Epithel Cells (Auto) 0-2 (0-2) /hpf Urine Bacteria (Auto) None Seen (None Seen) Adenovirus (PCR) Not Detected (NotDetected) B. pertussis DNA (PCR) Not Detected (NotDetected) B.parapertussis DNA PCR Not Detected (NotDetected) C. pneumoniae DNA (PCR) Not Detected (NotDetected) Coronavirus OC43 (PCR) Not Detected (NotDetected) Coronavirus HKU1 (PCR) Not Detected (NotDetected) Coronavirus 229E (PCR) Not Detected (NotDetected) SARS-CoV-2 (PCR) Not Detected (NotDetected) Coronavirus NL63 (PCR) Not Detected (NotDetected) Human Metapneumovir PCR Not Detected (NotDetected) Influenza Type A (PCR) Not Detected (NotDetected) Influenza Type B (PCR) Not Detected (NotDetected) M. pneumoniae (PCR) Not Detected (NotDetected) Parainfluenza 1 (PCR) Not Detected (NotDetected) Parainfluenza 2 (PCR) Not Detected (NotDetected) Parainfluenza 3 (PCR) Not Detected (NotDetected) Parainfluenza 4 (PCR) Not Detected (NotDetected) RSV (PCR) Not Detected (NotDetected) Entero/Rhino (PCR) Not Detected (NotDetected) Blood Type Blood Type Recheck Antibody Screen PG Care Time/CCT Total # of Minutes Spent Total Time Spent with Patient: Total time spent is greater than 50% in coordination of care (as documented) at patient's floor/unit and/or counseling patient: Coding Level of Care Code 46716 INT INP/OBS CARE 2/55MIN Diagnoses Melena K92.1 Coffee ground emesis K92.0
--- NOTE | 2024-12-08 11:34 | Electrocardiogram Report ---
Test Reason : Blood Pressure : */* mmHG Vent. Rate : 103 BPM Atrial Rate : * BPM P-R Int : * ms QRS Dur : 92 ms QT Int : 344 ms P-R-T Axes : * -11 103 degrees QTcB Int : 450 ms Atrial fibrillation with rapid ventricular response Abnormal ECG No previous ECGs available Confirmed by Jomar Lua ([id number]) on 12/08/2024 11:34:04 AM Referred By: REFERRED SELF Confirmed By: Jomar Lua
[2024-12-08 12:08] LABS: Basophils # (auto) 0.04 K/uL (0.00-0.20); Basophils % (auto) 0.3 %; Eosinophils # (auto) 0.02 K/uL (0.00-0.50); Eosinophils % (auto) 0.1 %; Hematocrit (blood only) 23.2 % (42.0-52.0); Hemoglobin 7.8 g/dl (14.0-18.0); Immature Granulocytes # (auto) 0.08 K/uL (0.01-0.20); Immature Granulocytes % (auto) 0.6 %; Lymphocytes # (auto) 1.77 K/uL (1.20-3.40); Lymphocytes % (auto) 12.6 %; Mean Corpuscular Hemoglobin 32.2 pg (25.0-34.0); Mean Corpuscular Hgb Conc 33.6 g/dL (32.0-36.0); Mean Corpuscular Volume 95.9 fL (80.0-100.0); Monocytes # (auto) 1.17 K/uL (0.11-0.59); Monocytes % (auto) 8.3 %; Neutrophils # (auto) 10.95 K/uL (1.40-6.50); Neutrophils % (auto) 78.1 %; Platelet Count 111 K/uL (130-400); RDW Coefficient of Variation 14.6 % (11.5-14.5); RDW Standard Deviation 50.5 fL (36.4-46.3); Red Blood Count 2.42 M/uL (4.70-6.10); White Blood Count 14.03 K/ul (4.8-10.8)
[2024-12-08 12:46] LABS: RBC Morphology Unremarkable
--- NOTE | 2024-12-08 13:24 | Communication Note ---
Date of Service: December 08, 2024 Please refer to the H&P dictated earlier this morning for details of presentation on admission. In brief, the patient presented with near syncope, was found to be anemic, with orthostatic hypotension and symptoms of GI bleed. He was on Eliquis last dose 6 PM 12/07. His hemoglobin in 09/2024 was 14. Upon admission, hemoglobin was 9.7 --> 8.7 --> 7.8. Patient is not hypotensive or symptomatic. No bowel movements since admission. Clinically appears to be stable. Ordered a unit of blood. Eliquis being held. GI on board, plans to do EGD tomorrow 12/09. Spoke to Dr. Werner at anticoagulation clinic. Since the patient is doing well clinically, Dr. Werner and I together decided to not order Kcentra for Eliquis reversal. Also noted that the patient's troponin continues to rise. At 59 today. He has no chest pain or shortness of breath. This is most likely demand ischemia due to anemia. The patient needs blood and not a blood thinner. Transfusing 1 unit of blood.
[2024-12-08] MEDS: FAMOTIDINE 20MG IV PUSH 20 MG/5 ML SYR IV SCH (17:34)
--- NOTE | 2024-12-08 19:21 | Billing Data ---
Date of Service December 08, 2024 Coding Level of Care Code 54453 INT INP/OBS CARE
[2024-12-08 19:27] LABS: Basophils # (auto) 0.06 K/uL (0.00-0.20); Basophils % (auto) 0.4 %; Eosinophils # (auto) 0.03 K/uL (0.00-0.50); Eosinophils % (auto) 0.2 %; Immature Granulocytes # (auto) 0.04 K/uL (0.01-0.20); Immature Granulocytes % (auto) 0.2 %; Lymphocytes # (auto) 2.58 K/uL (1.20-3.40); Lymphocytes % (auto) 15.8 %; Mean Corpuscular Hemoglobin 31.9 pg (25.0-34.0); Mean Corpuscular Hgb Conc 33.3 g/dL (32.0-36.0); Mean Corpuscular Volume 95.7 fL (80.0-100.0); Mean Platelet Volume 11.2 fL (9.4-12.4); Monocytes # (auto) 1.57 K/uL (0.11-0.59); Monocytes % (auto) 9.6 %; Neutrophils # (auto) 12.02 K/uL (1.40-6.50); Neutrophils % (auto) 73.8 %; Platelet Count 114 K/uL (130-400); RDW Coefficient of Variation 15.9 % (11.5-14.5); Red Blood Count 2.82 M/uL (4.70-6.10)
[2024-12-09 00:59] LABS: Basophils # (auto) 0.06 K/uL (0.00-0.20); Basophils % (auto) 0.5 %; Eosinophils # (auto) 0.08 K/uL (0.00-0.50); Eosinophils % (auto) 0.6 %; Hematocrit (blood only) 24.8 % (42.0-52.0); Hemoglobin 8.4 g/dl (14.0-18.0); Immature Granulocytes # (auto) 0.07 K/uL (0.01-0.20); Immature Granulocytes % (auto) 0.5 %; Lymphocytes # (auto) 1.84 K/uL (1.20-3.40); Lymphocytes % (auto) 14.4 %; Mean Corpuscular Hemoglobin 31.9 pg (25.0-34.0); Mean Corpuscular Hgb Conc 33.9 g/dL (32.0-36.0); Mean Corpuscular Volume 94.3 fL (80.0-100.0); Mean Platelet Volume 11.4 fL (9.4-12.4); Monocytes # (auto) 1.17 K/uL (0.11-0.59); Monocytes % (auto) 9.2 %; Neutrophils # (auto) 9.52 K/uL (1.40-6.50); Neutrophils % (auto) 74.8 %; Platelet Count 111 K/uL (130-400); RDW Coefficient of Variation 16.5 % (11.5-14.5); RDW Standard Deviation 56.5 fL (36.4-46.3); Red Blood Count 2.63 M/uL (4.70-6.10); White Blood Count 12.74 K/ul (4.8-10.8)
[2024-12-09 07:13] LABS: Basophils # (auto) 0.05 K/uL (0.00-0.20); Basophils % (auto) 0.4 %; Eosinophils # (auto) 0.11 K/uL (0.00-0.50); Eosinophils % (auto) 0.9 %; Hematocrit (blood only) 23.3 % (42.0-52.0); Immature Granulocytes # (auto) 0.05 K/uL (0.01-0.20); Immature Granulocytes % (auto) 0.4 %; Lymphocytes # (auto) 1.78 K/uL (1.20-3.40); Lymphocytes % (auto) 14.8 %; Mean Corpuscular Hemoglobin 32.8 pg (25.0-34.0); Mean Corpuscular Hgb Conc 34.3 g/dL (32.0-36.0); Mean Corpuscular Volume 95.5 fL (80.0-100.0); Mean Platelet Volume 11.1 fL (9.4-12.4); Monocytes # (auto) 1.06 K/uL (0.11-0.59); Monocytes % (auto) 8.8 %; Neutrophils # (auto) 8.96 K/uL (1.40-6.50); Neutrophils % (auto) 74.7 %; Platelet Count 107 K/uL (130-400); RDW Coefficient of Variation 16.5 % (11.5-14.5); RDW Standard Deviation 56.8 fL (36.4-46.3); Red Blood Count 2.44 M/uL (4.70-6.10); White Blood Count 12.01 K/ul (4.8-10.8)
[2024-12-09 07:42] LABS: Albumin Globulin Ratio 2.1 (0.9-2); Albumin Level 3.3 gm/dl (3.4-5.0); BUN Creatinine Ratio 40.5 (10-20); Bilirubin,Total 1.6 mg/dl (0.2-1.0); Calcium 8.6 mg/dl (8.6-10.3); Creatinine Clr Calc Pharmacy 29.5 ml/min; Globulin 1.6 gm/dl (2.5-4.0); Magnesium 1.7 mg/dl (1.7-2.4); Potassium 4.4 mmol/L (3.5-5.1); Total Protein 4.9 gm/dl (6.0-8.3)
[2024-12-09 08:11] LABS: Estimated Average Glucose 148 mg/dl; Hemoglobin A1C 6.8 % (4.5-5.6)
--- NOTE | 2024-12-09 09:50 | Gastroenterology Progress Note ---
Date of Service December 09, 2024 Assessment & Plan (1) Melena: Plan: 84 year old male with history of HTN, dyslipidemia, CKD, A-fib, MV repair w/ MV clip implantation, T2DM, CAD s/p CABG x3 anticoagulated on Eliquis admitted w/ syncopal event, reports melena at home and an isolated episode of coffee ground emesis in the ED. S/P 1 unit RBC, HGB 9.7 --> 7.8 --> 9 --> 8. He has had persistent BUN elevation, 2 black BMs since yesterday, now w/ rising troponin. EGD this AM postponed as anesthesia has request cardiac clearance - Arrange cardiology clearance - EGD timing to be determined - Hold Eliquis - No NSAIDs - IV Fluid replacement - Replace electrolytes - IV PPI bolus/drip - Trend H&H - Monitor and document GI output - Transfuse PRN per primary service We appreciate assistance in the management of any serological abnormality and corrections to include: hemoglobin >7, INR <2, platelets >50,000, potassium levels >3.5 but <5.3, and sodium levels within 5 points of the reference range prior to endoscopic evaluation. Thank you for allowing us to participate in the care of this patient. Please call with any acute changes, questions or concerns. Please see addendum below with additional recommendation from my supervising physician. I spent a total of 40 minutes on the date of service in review of patient's record, and previously obtained information in person and appropriate medical visit, discussion and education of plan, with patient and/or caregiver, placing orders for tests/referral/procedures as medically necessary and documentation of pertinent clinical information in patient's medical records for their visit today. (2) Coffee ground emesis: Admission and Anticipated Discharge Date Admission Date: December 08, 2024 Supervising Physician Co-Signing Physician Notes Agree with the notes above as outlined no changes. EGD today. Informed consent obtained Subjective Pt was seen and evaluated, chart reviewed. EGD this AM post-poned, request for cardiology clearance directed by anesthesia. Denies abd pain. No report of CP or SOB. Has had two black BMs since PM rounds yesterday. s/p 1 unit RBCs HGB 9.7 --> 7.8 --> 9 --> 8 BUN 77, STEM CUTTER 1.90 Review of Systems Review of Systems: All other findings negative except as noted in HPI. Physical Exam Constitutional: WD/WN, vitals as above Respiratory: normal respiratory effort Cardiovascular: Rate/Rhythm: regular rate and regular rhythm Gastrointestinal (Abdomen): normal bowel sounds, soft, nontender, no hepatosplenomegaly Skin: no rashes, warm and dry Results & Data Results & Data Vital Signs (Past 12 Hours) Vital Signs Temp Pulse Pulse Resp BP BP Pulse Ox 12/09/24 07:34 12/09/24 07:02 89 12/09/24 07:00 98.1 F 89 20 96/64 L 96 12/09/24 04:44 97.5 F L 77 18 104/53 L 96 12/09/24 00:38 98.2 F 83 18 112/59 L 97 O2 Del Method 12/09/24 07:34 Room Air 12/09/24 07:02 12/09/24 07:00 Room Air 12/09/24 04:44 Room Air 12/09/24 00:38 Room Air Laboratory Results 12/09/24 12/09/24 12/09/24 Range/Units 05:31 02:36 00:28 WBC 12.01 H 12.74 H (4.8-10.8) K/ul RBC 2.44 L 2.63 L (4.70-6.10) M/uL Hgb 8.0 L 8.4 L (14.0-18.0) g/dl Hct 23.3 L 24.8 L (42.0-52.0) % MCV 95.5 94.3 (80.0-100.0) fL MCH 32.8 31.9 (25.0-34.0) pg MCHC 34.3 33.9 (32.0-36.0) g/dL RDW Std Deviation 56.8 H 56.5 H (36.4-46.3) fL RDW Coeff of Jeanmarie 16.5 H 16.5 H (11.5-14.5) % Plt Count 107 L 111 L (130-400) K/uL MPV 11.1 11.4 (9.4-12.4) fL Immature Gran % (Auto) 0.4 0.5 % Neut % (Auto) 74.7 74.8 % Lymph % (Auto) 14.8 14.4 % [place] % (Auto) 8.8 9.2 % Eos % (Auto) 0.9 0.6 % Baso % (Auto) 0.4 0.5 % Neut # (Auto) 8.96 H 9.52 H (1.40-6.50) K/uL Lymph # (Auto) 1.78 1.84 (1.20-3.40) K/uL [place] # (Auto) 1.06 H 1.17 H (0.11-0.59) K/uL Eos # (Auto) 0.11 0.08 (0.00-0.50) K/uL Baso # (Auto) 0.05 0.06 (0.00-0.20) K/uL Immature Gran # (Auto) 0.05 0.07 (0.01-0.20) K/uL RBC Morphology Sodium 143 (136-145) mmol/L Potassium 4.4 (3.5-5.1) mmol/L Chloride 116 H (98-107) mmol/L Carbon Dioxide 21 (21-32) mmol/L Anion Gap 6 (3-11) BUN 77 H D (6-23) mg/dl Creatinine 1.90 H (0.6-1.4) mg/dl Est Cr Clr Drug Dosing 29.5 ml/min eGFR 34.14 BUN/Creatinine Ratio 40.5 H (10-20) Glucose 160 H (70-99(Fasting)) mg/dl POC Glucose 170 H (70-99) mg/dl Estimat Average Glucose 148 mg/dl Hemoglobin A1c 6.8 H (4.5-5.6) % Calcium 8.6 (8.6-10.3) mg/dl Magnesium 1.7 (1.7-2.4) mg/dl Total Bilirubin 1.6 H (0.2-1.0) mg/dl AST 20 (13-39) U/L ALT 16 (7-52) U/L Alkaline Phosphatase 48 (34-104) U/L Troponin I High Sens 232.6 H* D 176.2 H* D (0-20) pg/ml Total Protein 4.9 L (6.0-8.3) gm/dl Albumin 3.3 L (3.4-5.0) gm/dl Globulin 1.6 L (2.5-4.0) gm/dl Albumin/Globulin Ratio 2.1 H (0.9-2) Blood Type Antibody Screen Crossmatch 12/08/24 12/08/24 12/08/24 Range/Units 21:11 18:52 15:06 WBC 16.30 H (4.8-10.8) K/ul RBC 2.82 L (4.70-6.10) M/uL Hgb 9.0 L (14.0-18.0) g/dl Hct 27.0 L (42.0-52.0) % MCV 95.7 (80.0-100.0) fL MCH 31.9 (25.0-34.0) pg MCHC 33.3 (32.0-36.0) g/dL RDW Std Deviation 55.0 H (36.4-46.3) fL RDW Coeff of Jeanmarie 15.9 H (11.5-14.5) % Plt Count 114 L (130-400) K/uL MPV 11.2 (9.4-12.4) fL Immature Gran % (Auto) 0.2 % Neut % (Auto) 73.8 % Lymph % (Auto) 15.8 % [place] % (Auto) 9.6 % Eos % (Auto) 0.2 % Baso % (Auto) 0.4 % Neut # (Auto) 12.02 H (1.40-6.50) K/uL Lymph # (Auto) 2.58 (1.20-3.40) K/uL [place] # (Auto) 1.57 H (0.11-0.59) K/uL Eos # (Auto) 0.03 (0.00-0.50) K/uL Baso # (Auto) 0.06 (0.00-0.20) K/uL Immature Gran # (Auto) 0.04 (0.01-0.20) K/uL RBC Morphology Sodium (136-145) mmol/L Potassium (3.5-5.1) mmol/L Chloride (98-107) mmol/L Carbon Dioxide (21-32) mmol/L Anion Gap (3-11) BUN (6-23) mg/dl Creatinine (0.6-1.4) mg/dl Est Cr Clr Drug Dosing ml/min eGFR BUN/Creatinine Ratio (10-20) Glucose (70-99(Fasting)) mg/dl POC Glucose (70-99) mg/dl Estimat Average Glucose mg/dl Hemoglobin A1c (4.5-5.6) % Calcium (8.6-10.3) mg/dl Magnesium (1.7-2.4) mg/dl Total Bilirubin (0.2-1.0) mg/dl AST (13-39) U/L ALT (7-52) U/L Alkaline Phosphatase (34-104) U/L Troponin I High Sens 135.5 H* D 83.1 H* D (0-20) pg/ml Total Protein (6.0-8.3) gm/dl Albumin (3.4-5.0) gm/dl Globulin (2.5-4.0) gm/dl Albumin/Globulin Ratio (0.9-2) Blood Type Antibody Screen Crossmatch 12/08/24 12/08/24 12/08/24 Range/Units 11:50 10:41 03:10 WBC 14.03 H (4.8-10.8) K/ul RBC 2.42 L (4.70-6.10) M/uL Hgb 7.8 L (14.0-18.0) g/dl Hct 23.2 L (42.0-52.0) % MCV 95.9 (80.0-100.0) fL MCH 32.2 (25.0-34.0) pg MCHC 33.6 (32.0-36.0) g/dL RDW Std Deviation 50.5 H (36.4-46.3) fL RDW Coeff of Jeanmarie 14.6 H (11.5-14.5) % Plt Count 111 L (130-400) K/uL MPV 11.0 (9.4-12.4) fL Immature Gran % (Auto) 0.6 % Neut % (Auto) 78.1 % Lymph % (Auto) 12.6 % [place] % (Auto) 8.3 % Eos % (Auto) 0.1 % Baso % (Auto) 0.3 % Neut # (Auto) 10.95 H (1.40-6.50) K/uL Lymph # (Auto) 1.77 (1.20-3.40) K/uL [place] # (Auto) 1.17 H (0.11-0.59) K/uL Eos # (Auto) 0.02 (0.00-0.50) K/uL Baso # (Auto) 0.04 (0.00-0.20) K/uL Immature Gran # (Auto) 0.08 (0.01-0.20) K/uL RBC Morphology Unremarkable Sodium (136-145) mmol/L Potassium (3.5-5.1) mmol/L Chloride (98-107) mmol/L Carbon Dioxide (21-32) mmol/L Anion Gap (3-11) BUN (6-23) mg/dl Creatinine (0.6-1.4) mg/dl Est Cr Clr Drug Dosing ml/min eGFR BUN/Creatinine Ratio (10-20) Glucose (70-99(Fasting)) mg/dl POC Glucose (70-99) mg/dl Estimat Average Glucose mg/dl Hemoglobin A1c (4.5-5.6) % Calcium (8.6-10.3) mg/dl Magnesium (1.7-2.4) mg/dl Total Bilirubin (0.2-1.0) mg/dl AST (13-39) U/L ALT (7-52) U/L Alkaline Phosphatase (34-104) U/L Troponin I High Sens 59.3 H* D (0-20) pg/ml Total Protein (6.0-8.3) gm/dl Albumin (3.4-5.0) gm/dl Globulin (2.5-4.0) gm/dl Albumin/Globulin Ratio (0.9-2) Blood Type O Positive Antibody Screen NEGATIVE Crossmatch See Detail PG Care Time/CCT Total # of Minutes Spent Total Time Spent with Patient: Total time spent is greater than 50% in coordination of care (as documented) at patient's floor/unit and/or counseling patient: Coding Level of Care Code 68241 SUB INP/OBS CARE 2/35MIN Diagnoses Melena K92.1 Coffee ground emesis K92.0
[2024-12-09 12:13] LABS: Basophils # (auto) 0.06 K/uL (0.00-0.20); Basophils % (auto) 0.5 %; Eosinophils % (auto) 0.8 %; Hematocrit (blood only) 25.6 % (42.0-52.0); Hemoglobin 8.4 g/dl (14.0-18.0); Immature Granulocytes # (auto) 0.05 K/uL (0.01-0.20); Immature Granulocytes % (auto) 0.4 %; Lymphocytes # (auto) 2.14 K/uL (1.20-3.40); Mean Corpuscular Hemoglobin 31.6 pg (25.0-34.0); Mean Corpuscular Hgb Conc 32.8 g/dL (32.0-36.0); Mean Corpuscular Volume 96.2 fL (80.0-100.0); Mean Platelet Volume 10.8 fL (9.4-12.4); Monocytes # (auto) 1.13 K/uL (0.11-0.59); Neutrophils # (auto) 9.13 K/uL (1.40-6.50); Neutrophils % (auto) 72.3 %; Nucleated RBC # (auto) 0.03 K/uL (0.00-0.12); Nucleated RBC % (auto) 0.2 %; Platelet Count 114 K/uL (130-400); RDW Coefficient of Variation 16.9 % (11.5-14.5); RDW Standard Deviation 57.9 fL (36.4-46.3); Red Blood Count 2.66 M/uL (4.70-6.10); White Blood Count 12.61 K/ul (4.8-10.8)
--- NOTE | 2024-12-09 12:34 | Cardiology Consultation ---
Date of Consultation December 09, 2024 Assessment & Plan (1) Preoperative cardiovascular examination: (2) NSTEMI (non-ST elevated myocardial infarction): (3) Acute upper GI bleed: (4) Acute hypotension: (5) Near syncope: (6) Atrial fibrillation: Plan From a cardiac standpoint, he is considered to be optimized for EGD. Would ideally add BB, however, low BP will not allow. His cardiovascular risk at this time is considered to be intermediate-high, but not prohibitive. Hold NOAC until we see source of bleeding. Further rec will follow after EGD. History of Present Illness Reason for Consultation: Cardiac clearance Requesting Physician: GI Attending Physician: Frank Corcoran MD History of Present Illness Mr. Rodriguez is a very pleasant 84 y/o with a PMHx of Gout, HTN, HLD, CKD, A- fib after recent MV repair w/ MV clip implantation (on Eliquis since the fall), DM-2, and CAD (CABG x3) who was arrived to the ED after experiencing near syncopal episode at home while walking to the bathroom. Patient states that, since early in the morning, patient had been feeling clammy, warm, and nauseous when standing. At around 7 pm, his symptoms worsened and when he was going to the bathroom developed nausea/diaphoresis/flushing/weakness and felt like he was going to pass out. On the days leading to this, patient had been having similar but more mild sxs, and states he had noted his stool had been darker than usual with a black BM in ER. Hgb in fall was 14 and today decreased to 8.0 despite 1 unit of blood. He denies CP or SOB. ECG shows Afib with occ PVCs. Troponin + Allergies Allergy/AdvReac Type Severity Reaction Status Date / Time No Known Allergies Allergy Verified 10/27/24 06:20 Home Medications Medication Instructions Recorded Confirmed Type allopurinol 300 mg tablet 300 mg PO QAM 10/07/24 10/27/24 History apixaban 2.5 mg tablet (Eliquis) 2.5 mg PO BID 10/07/24 10/27/24 History ascorbic acid (vitamin C) 1,000 mg 1 g PO QAM 10/07/24 10/27/24 History tablet (Vitamin C) atorvastatin 80 mg tablet 80 mg PO HS 10/07/24 10/27/24 History losartan 25 mg tablet 25 mg PO PM 10/07/24 10/27/24 History metoprolol succinate 25 mg 12.5 mg PO HS 10/07/24 10/27/24 History tablet,extended release 24 hr vyetezea-vzo-zsupnb 5 mg-zeaxanth 1 cap PO QAM 10/07/24 10/27/24 History 1 mg-bilberry 7.5 mg-herbal capsule (Macular Health Formula) hajppixa-dt-ztgnr 300 mcg-K 60 1 tab PO QAM 10/07/24 10/27/24 History mcg-lycop 600 mcg-lutein 300 mcg tablet (Centrum Silver Men) psyllium seed (sugar) oral powder 1 tbsp PO PM 10/07/24 10/20/24 History (Metamucil (sugar) oral powder) ranolazine 500 mg tablet,extended 500 mg PO BID 10/07/24 10/27/24 History release,12 hr Patient History Medical History Type 2 diabetes mellitus diet controlled, no meds Constipation Atrial fibrillation dx Jun 2024 s/p mitral repair > no pacer > follows with Dr. Hendrix Hypertension Hyperlipidemia History of COVID-2020 Surgical History Hx of right cataract extraction Hx of transurethral resection of prostate 2004 History of colonoscopy [place] teeth extracted History of tonsillectomy History of cardiac cath last one approx 2013 S/P CABG x 19 January 2005 > [facility] Hx [place] valve [place] [facility] [place], [address] Social History Smoking Status: Never smoker Second Hand Exposure: No; Do You Dip or Chew Tobacco: No; Hx Alcohol Use: Yes Hx Substance Use: No Preferred Language: Malian Communication Ability: Effective Veneer Gluer Required: No Beliefs That Will Affect Care: None Current Living Situation: Other Current Living Situation Comment: [facility] with current occupation: Retired Other Information That Helps Us Care for You: No Feels Safe at Home: Yes Safety Concerns: Feels Safe At This Time Assistive Devices: None Review of Systems Review of Systems: All systems reviewed & are unremarkable except as noted in HPI & below Physical Exam Physical Exam: AAO in NAD comfortable Cardiovascular: irregular KANIKA Results & Data Vital Signs (Past 12 Hours) Vital Signs Temp Pulse Pulse Resp BP BP Pulse Ox 12/09/24 10:37 36.3 C L 88 16 111/67 99 12/09/24 07:34 12/09/24 07:02 89 12/09/24 07:00 36.7 C 89 20 96/64 L 96 12/09/24 04:44 36.4 C L 77 18 104/53 L 96 12/09/24 00:38 36.8 C 83 18 112/59 L 97 O2 Del Method 12/09/24 10:37 Room Air 12/09/24 07:34 Room Air 12/09/24 07:02 12/09/24 07:00 Room Air 12/09/24 04:44 Room Air 12/09/24 00:38 Room Air Laboratory Results Abnormal lab results 12/08/24 12/08/24 12/08/24 Range/Units 03:10 15:06 18:52 WBC 16.30 H (4.8-10.8) K/ul RBC 2.82 L (4.70-6.10) M/uL Hgb 9.0 L (14.0-18.0) g/dl Hct 27.0 L (42.0-52.0) % RDW Std Deviation 55.0 H (36.4-46.3) fL RDW Coeff of Jeanmarie 15.9 H (11.5-14.5) % Plt Count 114 L (130-400) K/uL Neut # (Auto) 12.02 H (1.40-6.50) K/uL [place] # (Auto) 1.57 H (0.11-0.59) K/uL Chloride (98-107) mmol/L BUN (6-23) mg/dl Creatinine (0.6-1.4) mg/dl BUN/Creatinine Ratio (10-20) Glucose (70-99(Fasting)) mg/dl POC Glucose (70-99) mg/dl Hemoglobin A1c (4.5-5.6) % Total Bilirubin (0.2-1.0) mg/dl Troponin I High Sens 83.1 H* D (0-20) pg/ml Total Protein (6.0-8.3) gm/dl Albumin (3.4-5.0) gm/dl Globulin (2.5-4.0) gm/dl Albumin/Globulin Ratio (0.9-2) Crossmatch See Detail 12/08/24 12/09/24 12/09/24 Range/Units 21:11 00:28 02:36 WBC 12.74 H (4.8-10.8) K/ul RBC 2.63 L (4.70-6.10) M/uL Hgb 8.4 L (14.0-18.0) g/dl Hct 24.8 L (42.0-52.0) % RDW Std Deviation 56.5 H (36.4-46.3) fL RDW Coeff of Jeanmarie 16.5 H (11.5-14.5) % Plt Count 111 L (130-400) K/uL Neut # (Auto) 9.52 H (1.40-6.50) K/uL [place] # (Auto) 1.17 H (0.11-0.59) K/uL Chloride (98-107) mmol/L BUN (6-23) mg/dl Creatinine (0.6-1.4) mg/dl BUN/Creatinine Ratio (10-20) Glucose (70-99(Fasting)) mg/dl POC Glucose 170 H (70-99) mg/dl Hemoglobin A1c (4.5-5.6) % Total Bilirubin (0.2-1.0) mg/dl Troponin I High Sens 135.5 H* D 176.2 H* D (0-20) pg/ml Total Protein (6.0-8.3) gm/dl Albumin (3.4-5.0) gm/dl Globulin (2.5-4.0) gm/dl Albumin/Globulin Ratio (0.9-2) Crossmatch 12/09/24 12/09/24 Range/Units 05:31 11:59 WBC 12.01 H 12.61 H (4.8-10.8) K/ul RBC 2.44 L 2.66 L (4.70-6.10) M/uL Hgb 8.0 L 8.4 L (14.0-18.0) g/dl Hct 23.3 L 25.6 L (42.0-52.0) % RDW Std Deviation 56.8 H 57.9 H (36.4-46.3) fL RDW Coeff of Jeanmarie 16.5 H 16.9 H (11.5-14.5) % Plt Count 107 L 114 L (130-400) K/uL Neut # (Auto) 8.96 H 9.13 H (1.40-6.50) K/uL [place] # (Auto) 1.06 H 1.13 H (0.11-0.59) K/uL Chloride 116 H (98-107) mmol/L BUN 77 H D (6-23) mg/dl Creatinine 1.90 H (0.6-1.4) mg/dl BUN/Creatinine Ratio 40.5 H (10-20) Glucose 160 H (70-99(Fasting)) mg/dl POC Glucose (70-99) mg/dl Hemoglobin A1c 6.8 H (4.5-5.6) % Total Bilirubin 1.6 H (0.2-1.0) mg/dl Troponin I High Sens 232.6 H* D 305.2 H* D (0-20) pg/ml Total Protein 4.9 L (6.0-8.3) gm/dl Albumin 3.3 L (3.4-5.0) gm/dl Globulin 1.6 L (2.5-4.0) gm/dl Albumin/Globulin Ratio 2.1 H (0.9-2) Crossmatch Diagnostic Findings ECHO from August with EF 50% MV clip Medications Administered Current Inpatient Medications Acetaminophen (Acetaminophen 325 Mg Tab) 650 mg PO Q4H PRN PRN Reason: Pain or Fever Stop: 01/07/25 05:20 Pantoprazole Sodium 40 mg/ (Dextrose) 100 mls @ 20 mls/hr IV Q5H CYN Stop: 01/07/25 05:59 Last Admin: 12/09/24 12:22 Dose: 8 mg/hr, 20 mls/hr Famotidine (Pepcid 20mg Iv Push) 20 mg in 5 mls @ 2.5 mls/min IV Q12H CYN Stop: 01/07/25 17:59 Last Admin: 12/09/24 05:28 Dose: 2.5 mls/min Dextrose/Sodium Chloride (D5w And Nss) 1,000 mls @ 80 mls/hr IV .[id number] CYN Stop: 12/10/24 13:29 Ondansetron HCl (Ondansetron Inj 2 Mg/Ml 2 Ml Vial) 4 mg IV Q6H PRN PRN Reason: Nausea Stop: 01/07/25 05:20 Polyethylene Glycol (Polyethylene (Miralax) 17 Gm Pack) 17 gm PO DAILY PRN PRN Reason: Constipation Stop: 01/07/25 05:20
--- NOTE | 2024-12-09 14:10 | Electrocardiogram Report ---
Test Reason : Blood Pressure : */* mmHG Vent. Rate : 88 BPM Atrial Rate : * BPM P-R Int : * ms QRS Dur : 88 ms QT Int : 366 ms P-R-T Axes : * -22 62 degrees QTcB Int : 442 ms Atrial fibrillation with premature ventricular or aberrantly conducted complexes Abnormal ECG When compared with ECG of 08-Dec-2024 00:26, No significant change was found Confirmed by Jomar Lua ([id number]) on 12/09/2024 2:09:54 PM Referred By: REFERRED SELF Confirmed By: Jomar Lua
--- NOTE | 2024-12-09 15:25 | Communication Note ---
Date of Service: December 09, 2024 EGD Patient had an antral ulcer. This was cratered. 8 to 10 mm in size. There was a flat pigmented spot forming likely source of bleeding. No endoscopic intervention required for these findings. Biopsies performed for histology and H. pylori Recommend twice daily PPI therapy can resume Eliquis in 2 to 3 days if felt essential and hemoglobin stable. Long-term PPI therapy recommended patient should avoid NSAIDs going forward
--- NOTE | 2024-12-09 15:30 | GI REPORT ---
[facility] Patient: ELY SHELTON : 1940 Sex at : Male Age: 84 Years Procedure: Upper GI endoscopy Date: 12/09/2024 Attending Physician: Librado Coffey MD Referring MD: Frank Corcoran Md Indications: - Suspected upper gastrointestinal bleeding Medications: - Monitored Anesthesia Care Complications: - No immediate complications. Estimated Blood Loss: - Estimated blood loss was minimal. Procedure: - The egd scope was introduced through the mouth and advanced to the third part of the duodenum. - The upper GI endoscopy was accomplished without difficulty. - The patient tolerated the procedure well. Findings: - The examined esophagus was normal. - One non-bleeding cratered gastric ulcer with pigmented material was found in the prepyloric region of the stomach. The lesion was 8 mm in largest dimension. Biopsies were taken with a cold forceps for histology. Estimated blood loss was minimal. - The examined duodenum was normal. Impression: - Normal esophagus. - Non-bleeding gastric ulcer with pigmented material. Biopsied. - Normal examined duodenum. Recommendation: - Await pathology results. - Avoid NSAIDs going forward. Can take acetaminophen up to 2 g/day. If required. With documented ulcer now and a bleed in a patient on anticoagulation I would recommend long-term PPI prophylaxis 40 mg/day - Patient does not have a clean ulcer base. Attentionally at risk of rebleed. If no rebleeding and 2 to 3 days. And Eliquis felt to be essential can be reintroduced at that time. Procedure Code(s): - 66393, Esophagogastroduodenoscopy, flexible, transoral; with biopsy, single or multiple Diagnosis Code(s): - K25.9, Gastric ulcer, unspecified as acute or chronic, without hemorrhage or perforation CPT(R) - 2023 copyright [employer]. All Rights Reserved. The CPT codes, CCI edits and ICD codes generated are intended as suggestions and were generated based on input data. These codes are preliminary and upon remote inpatient coder review may be revised to meet current compliance and payer requirements. The provider is responsible for the final determination of appropriate codes, and modifiers. Librado Coffey MD This document has been electronically signed. Note Initiated:12/09/2024 Note Completed:12/09/2024 3:29 PM [id number]
[2024-12-09] MEDS: GLYCOPYRROLATE 0.2 MG/ML VIAL ONE (15:46)
[2024-12-09] MEDS: LIDOCAINE 2% 2 ML VIAL/AMP(20MG/ML) INFIL ONE (15:46)
[2024-12-09] MEDS: PROPOFOL IV EMULSION 10 MG/ML 20 ML VIAL IV ONE ×2 (15:46)
--- NOTE | 2024-12-09 16:11 | Anesthesiology Progress Note ---
Date of Service December 09, 2024 Anesthesia Post Procedure Vital Signs Vital Signs: Temp Pulse Pulse Resp BP BP Pulse Ox 12/09/24 16:04 88 16 142/98 H 97 12/09/24 15:49 86 16 118/50 L 96 12/09/24 15:44 69 12/09/24 15:34 87 14 104/65 99 12/09/24 14:26 36.5 C 87 16 133/57 L 96 12/09/24 10:37 36.3 C L 88 16 111/67 99 12/09/24 07:34 12/09/24 07:02 89 12/09/24 07:00 36.7 C 89 20 96/64 L 96 12/09/24 04:44 36.4 C L 77 18 104/53 L 96 12/09/24 00:38 36.8 C 83 18 112/59 L 97 12/08/24 21:46 91 H 12/08/24 20:31 36.5 C 71 18 105/67 96 O2 Del Method O2 Flow Rate 12/09/24 16:04 Room Air 0 12/09/24 15:49 Room Air 0 12/09/24 15:44 12/09/24 15:34 Oxymask 6 12/09/24 14:26 Room Air 12/09/24 10:37 Room Air 12/09/24 07:34 Room Air 12/09/24 07:02 12/09/24 07:00 Room Air 12/09/24 04:44 Room Air 12/09/24 00:38 Room Air 12/08/24 21:46 12/08/24 20:31 Room Air Transfer of Care Handoff Completed per policy Notes Mental Status: alert / awake / arousable and participated in evaluation Patient Amnestic to Procedure: Yes Nausea / Vomiting: adequately controlled Pain: adequately controlled Airway Patency, RR, SpO2: stable & adequate BP & HR: stable & adequate Hydration State: stable & adequate Anesthetic Complications: no major complications apparent and Pt Satisfied with anesthetic care
[2024-12-09] MEDS: D5W AND NSS 1,000 ML IV SCH (16:38)
--- NOTE | 2024-12-09 16:43 | Hospitalist Progress Note ---
"Date of Service December 09, 2024 Assessment & Plan (1) Type 2 diabetes mellitus: (2) Atrial fibrillation: (3) Hypertension: (4) Hyperlipidemia: (5) Orthostatic hypotension: (6) Upper GI bleed: (7) Near syncope: Plan Patient is an 84 y/o M w/ PMHx of Gout, HTN, HLD, CKD, A-fib after recent MV repair w/ MV clip implantation (on Eliquis), DM-2, and CAD (CABG x3) who was admitted due to significant orthostatism with subsequent near syncope today. Upper GI bleed/acute blood loss anemia due to circulating anticoagulants (Eliquis) Orthostatism | Hypotension - Patient w/ intermittent hypotension since 08/2024 with today having significant orthostatism - TTE done in [facility] (07/2024) and showed mildly dilated LV with low normal systolic function, no regional wall motion abnormalities, EF of 50%, RV dilation w/ normal function, and mild MV regurgitation - Hgb in PCP office from 09/2024 showing level of 14 - In ED, BP decreased to 60/40 when sitting up/standing; patient was placed with head of bed leaning down with improvement in BP to 120s systolic and 70s diastolic - Patient's rnfa recently discontinued Losartan due to nighttime coughing, but had been becoming hypotensive since 08/2024 - Patient also on Ranolazine ER 500 mg bid; denies frequent use of NSAIDs or alcohol - Patient denies having epigastric pain, but does endorse nausea w/o vomiting and noting darker stools since the last few days (today's was darker) - FOB done as POC and positive; episode of coffee ground emesis while in the ED; repeat H&H ordered after episode and pending. - CTAP also ordered to r/o retroperitoneal bleed give patient had been on Eliquis 2.5 mg bid for a-fib; still pending Patient had EGD 12/09. Showed nonbleeding gastric ulcer IV Protonix twice daily today. May start p.o. tomorrow Continue to trend H&H Patient received a unit of blood transfusion on 12/08 Per GI. Patient will be able to resume Eliquis in 2 to 3 days if needed. A-fib - Currently rate controlled - Will hold metoprolol in the setting of hypotension -Will hold Eliquis in the setting of UGIB Elevated troponins -Troponins trended up. Still trending up. At 300. Follow until peak - No chest pain or anginal sxs - Likely demand ischemia given hypotension and current UGIB Cardiology on board. Was cleared for EGD Resume metoprolol when blood pressure tolerates - Will trend to peak HTN - Hold home meds DM-2 - No home insulin and not currently on meds - Will add Hgb A1c to am labs CKD - PCP office labs w/ Cr of 1.8; no other labs here to establish baseline - Cr on admission was 1.98 - Possible pre-renal MARLIN - Monitor am labs HLD | CAD - Hold atorvastatin while NPO Dispo: PCU Diet: Advance diet as tolerated VTE ppx: SCD; chemoprophylaxis contraindicated in the setting of UGIB Code Status: DNR/DNI Admission and Anticipated Discharge Date Admission Date: December 08, 2024 Subjective Patient was seen and examined at 12:50 PM. He denied any chest pain, shortness of breath. He denied any abdominal pain. No dizziness. He had an episode of black stools Review of Systems Review of Systems: All systems reviewed & are unremarkable except as noted in Subjective Physical Exam Physical Exam: General: Awake, conversant Heart: S1, S2/regular rate and rhythm, no murmur rubs or gallops Lungs: Clear to auscultation bilaterally. Normal effort Abdomen: Soft/nontender/nondistended. No hepatosplenomegaly Extremities: No clubbing/cyanosis. No edema Behavior: Appropriate, cooperative Results & Data Results & Data Vital Signs (Past 12 Hours) Vital Signs Temp Pulse Pulse Resp BP Pulse Ox O2 Del Method 12/09/24 16:04 88 16 142/98 H 97 Room Air 12/09/24 15:49 86 16 118/50 L 96 Room Air 12/09/24 15:44 69 12/09/24 15:34 87 14 104/65 99 Oxymask 12/09/24 14:26 36.5 C 87 16 133/57 L 96 Room Air 12/09/24 10:37 36.3 C L 88 16 111/67 99 Room Air 12/09/24 07:34 Room Air 12/09/24 07:02 89 12/09/24 07:00 36.7 C 89 20 96/64 L 96 Room Air 12/09/24 04:44 36.4 C L 77 18 104/53 L 96 Room Air O2 Flow Rate 12/09/24 16:04 0 12/09/24 15:49 0 12/09/24 15:44 12/09/24 15:34 6 12/09/24 14:26 12/09/24 10:37 12/09/24 07:34 12/09/24 07:02 12/09/24 07:00 12/09/24 04:44 Laboratory Results Abnormal lab results 12/08/24 12/08/24 12/09/24 Range/Units 18:52 21:11 00:28 WBC 16.30 H 12.74 H (4.8-10.8) K/ul RBC 2.82 L 2.63 L (4.70-6.10) M/uL Hgb 9.0 L 8.4 L (14.0-18.0) g/dl Hct 27.0 L 24.8 L (42.0-52.0) % RDW Std Deviation 55.0 H 56.5 H (36.4-46.3) fL RDW Coeff of Jeanmarie 15.9 H 16.5 H (11.5-14.5) % Plt Count 114 L 111 L (130-400) K/uL Neut # (Auto) 12.02 H 9.52 H (1.40-6.50) K/uL [place] # (Auto) 1.57 H 1.17 H (0.11-0.59) K/uL Chloride (98-107) mmol/L BUN (6-23) mg/dl Creatinine (0.6-1.4) mg/dl BUN/Creatinine Ratio (10-20) Glucose (70-99(Fasting)) mg/dl POC Glucose (70-99) mg/dl Hemoglobin A1c (4.5-5.6) % Total Bilirubin (0.2-1.0) mg/dl Troponin I High Sens 135.5 H* D 176.2 H* D (0-20) pg/ml Total Protein (6.0-8.3) gm/dl Albumin (3.4-5.0) gm/dl Globulin (2.5-4.0) gm/dl Albumin/Globulin Ratio (0.9-2) 0112/09/24 12/09/24 Range/Units 02:36 05:31 11:59 WBC 12.01 H 12.61 H (4.8-10.8) K/ul RBC 2.44 L 2.66 L (4.70-6.10) M/uL Hgb 8.0 L 8.4 L (14.0-18.0) g/dl Hct 23.3 L 25.6 L (42.0-52.0) % RDW Std Deviation 56.8 H 57.9 H (36.4-46.3) fL RDW Coeff of Jeanmarie 16.5 H 16.9 H (11.5-14.5) % Plt Count 107 L 114 L (130-400) K/uL Neut # (Auto) 8.96 H 9.13 H (1.40-6.50) K/uL [place] # (Auto) 1.06 H 1.13 H (0.11-0.59) K/uL Chloride 116 H (98-107) mmol/L BUN 77 H D (6-23) mg/dl Creatinine 1.90 H (0.6-1.4) mg/dl BUN/Creatinine Ratio 40.5 H (10-20) Glucose 160 H (70-99(Fasting)) mg/dl POC Glucose 170 H (70-99) mg/dl Hemoglobin A1c 6.8 H (4.5-5.6) % Total Bilirubin 1.6 H (0.2-1.0) mg/dl Troponin I High Sens 232.6 H* D 305.2 H* D (0-20) pg/ml Total Protein 4.9 L (6.0-8.3) gm/dl Albumin 3.3 L (3.4-5.0) gm/dl Globulin 1.6 L (2.5-4.0) gm/dl Albumin/Globulin Ratio 2.1 H (0.9-2) PG Care Time/CCT Total # of Minutes Spent Total Time Spent with Patient: Total time spent is greater than 50% in coordination of care (as documented) at patient's floor/unit and/or counseling patient: Coding Level of Care Code 47349 SUB INP/OBS CARE 2/35MIN Diagnoses Type 2 diabetes mellitus E11.9 Atrial fibrillation I48.91 Hypertension I10 Hyperlipidemia E78.5 Orthostatic hypotension I95.1 Upper GI bleed K92.2 Near syncope R55"
[2024-12-09 17:51] LABS: Basophils # (auto) 0.06 K/uL (0.00-0.20); Basophils % (auto) 0.6 %; Eosinophils # (auto) 0.11 K/uL (0.00-0.50); Eosinophils % (auto) 1.1 %; Hematocrit (blood only) 26.6 % (42.0-52.0); Hemoglobin 8.7 g/dl (14.0-18.0); Immature Granulocytes # (auto) 0.06 K/uL (0.01-0.20); Immature Granulocytes % (auto) 0.6 %; Lymphocytes # (auto) 1.46 K/uL (1.20-3.40); Lymphocytes % (auto) 15.1 %; Mean Corpuscular Hemoglobin 31.8 pg (25.0-34.0); Mean Corpuscular Hgb Conc 32.7 g/dL (32.0-36.0); Mean Corpuscular Volume 97.1 fL (80.0-100.0); Mean Platelet Volume 10.8 fL (9.4-12.4); Monocytes # (auto) 0.95 K/uL (0.11-0.59); Monocytes % (auto) 9.8 %; Neutrophils # (auto) 7.02 K/uL (1.40-6.50); Neutrophils % (auto) 72.8 %; Nucleated RBC # (auto) 0.02 K/uL (0.00-0.12); Nucleated RBC % (auto) 0.2 %; Platelet Count 115 K/uL (130-400); RDW Standard Deviation 58.7 fL (36.4-46.3); Red Blood Count 2.74 M/uL (4.70-6.10); White Blood Count 9.66 K/ul (4.8-10.8)
[2024-12-09] MEDS: MELATONIN 3 MG TAB PO PRN (20:36)
[2024-12-10 00:55] LABS: Hematocrit (blood only) 22.6 % (42.0-52.0); Hemoglobin 7.5 g/dl (14.0-18.0)
[2024-12-10 05:55] LABS: Albumin Globulin Ratio 1.9 (0.9-2); Albumin Level 3.3 gm/dl (3.4-5.0); Basophils # (auto) 0.04 K/uL (0.00-0.20); Basophils % (auto) 0.5 %; Bilirubin,Total 1.2 mg/dl (0.2-1.0); Calcium 8.8 mg/dl (8.6-10.3); Creatinine Clr Calc Pharmacy 29.5 ml/min; Eosinophils # (auto) 0.11 K/uL (0.00-0.50); Eosinophils % (auto) 1.4 %; Globulin 1.7 gm/dl (2.5-4.0); Hematocrit (blood only) 22.6 % (42.0-52.0); Hemoglobin 7.5 g/dl (14.0-18.0); Immature Granulocytes # (auto) 0.03 K/uL (0.01-0.20); Immature Granulocytes % (auto) 0.4 %; Lymphocytes # (auto) 1.49 K/uL (1.20-3.40); Lymphocytes % (auto) 18.8 %; Mean Corpuscular Hemoglobin 31.8 pg (25.0-34.0); Mean Corpuscular Hgb Conc 33.2 g/dL (32.0-36.0); Mean Corpuscular Volume 95.8 fL (80.0-100.0); Mean Platelet Volume 10.8 fL (9.4-12.4); Monocytes # (auto) 0.88 K/uL (0.11-0.59); Monocytes % (auto) 11.1 %; Neutrophils # (auto) 5.39 K/uL (1.40-6.50); Neutrophils % (auto) 67.8 %; Nucleated RBC # (auto) 0.02 K/uL (0.00-0.12); Nucleated RBC % (auto) 0.3 %; Platelet Count 97 K/uL (130-400); Polychromasia 1+; Potassium 4.1 mmol/L (3.5-5.1); RDW Coefficient of Variation 16.7 % (11.5-14.5); RDW Standard Deviation 56.3 fL (36.4-46.3); Red Blood Count 2.36 M/uL (4.70-6.10); White Blood Count 7.94 K/ul (4.8-10.8)
[2024-12-10] MEDS ORDERED: SODIUM CHLORIDE 0.9% 50 ML IV PRN (07:15)
[2024-12-10] MEDS ORDERED: SODIUM CHLORIDE 0.9% 100 ML IV PRN (07:15)
[2024-12-10 08:48] LABS: Troponin I High Sensitivity 382.9 pg/ml (0-20)
--- NOTE | 2024-12-10 10:20 | Gastroenterology Progress Note ---
Date of Service December 10, 2024 Assessment & Plan (1) Melena: Plan: 84 year old male with history of HTN, dyslipidemia, CKD, A-fib, MV repair w/ MV clip implantation, T2DM, CAD s/p CABG x3 anticoagulated on Eliquis admitted w/ syncopal event, reports melena at home and an isolated episode of coffee ground emesis in the ED. S/P EGD w/ evidence of a non-bleeding gastric ulcer with pigmented materia - Avoid NSAIDs going forward - May use acetaminophen up to 2 g/day if needed - Pantoprazole 40 mg twice daily x 1 month - Recommend long-term PPI prophylaxis at 40 mg daily - If no rebleeding over the next 48 hours and Eliquis felt to be essential can be reintroduced at that time - Trend H&H - Monitor and document GI output - Transfuse PRN per primary service I spent a total of 40 minutes on the date of service in review of patient's record, and previously obtained information in person and appropriate medical visit, discussion and education of plan, with patient and/or caregiver, placing orders for tests/referral/procedures as medically necessary and documentation of pertinent clinical information in patient's medical records for their visit today. (2) Coffee ground emesis: Admission and Anticipated Discharge Date Admission Date: December 08, 2024 Subjective Pt was seen and evaluated, chart reviewed. EGD yesterday w/ ulcers. Denies any BRBPR. Most recent stool was documented as black. EGD: Normal esophagus. - Non-bleeding gastric ulcer with pigmented material. Biopsied. - Normal examined duodenum. Review of Systems Review of Systems: All other findings negative except as noted in HPI. Physical Exam Constitutional: WD/WN, vitals as above Respiratory: normal respiratory effort, lungs clear to auscultation Cardiovascular: Rate/Rhythm: regular rate Gastrointestinal (Abdomen): normal bowel sounds, soft, nontender, no hepatosplenomegaly Skin: no rashes, warm and dry Results & Data Results & Data Vital Signs (Past 12 Hours) Vital Signs Temp Pulse Pulse Resp BP BP Pulse Ox 12/10/24 08:26 98.1 F 84 16 119/68 98 12/10/24 08:24 12/10/24 08:11 98.2 F 97 H 16 106/64 95 12/10/24 07:55 98.6 F 83 16 111/57 L 98 12/10/24 07:34 97.5 F L 75 18 119/72 98 12/10/24 07:02 83 12/10/24 03:51 97.5 F L 72 18 103/64 93 12/09/24 23:45 98.1 F 85 17 113/75 96 O2 Del Method 12/10/24 08:26 12/10/24 08:24 Room Air 12/10/24 08:11 12/10/24 07:55 12/10/24 07:34 Room Air 12/10/24 07:02 12/10/24 03:51 Room Air 12/09/24 23:45 Room Air Laboratory Results 12/10/24 12/10/24 12/09/24 Range/Units 05:18 00:28 17:38 WBC 7.94 9.66 (4.8-10.8) K/ul RBC 2.36 L 2.74 L (4.70-6.10) M/uL Hgb 7.5 L 7.5 L 8.7 L (14.0-18.0) g/dl Hct 22.6 L 22.6 L 26.6 L (42.0-52.0) % MCV 95.8 97.1 (80.0-100.0) fL MCH 31.8 31.8 (25.0-34.0) pg MCHC 33.2 32.7 (32.0-36.0) g/dL RDW Std Deviation 56.3 H 58.7 H (36.4-46.3) fL RDW Coeff of Jeanmarie 16.7 H 17.0 H (11.5-14.5) % Plt Count 97 L 115 L (130-400) K/uL MPV 10.8 10.8 (9.4-12.4) fL Immature Gran % (Auto) 0.4 0.6 % Neut % (Auto) 67.8 72.8 % Lymph % (Auto) 18.8 15.1 % Cameron % (Auto) 11.1 9.8 % Eos % (Auto) 1.4 1.1 % Baso % (Auto) 0.5 0.6 % Neut # (Auto) 5.39 7.02 H (1.40-6.50) K/uL Lymph # (Auto) 1.49 1.46 (1.20-3.40) K/uL Cameron # (Auto) 0.88 H 0.95 H (0.11-0.59) K/uL Eos # (Auto) 0.11 0.11 (0.00-0.50) K/uL Baso # (Auto) 0.04 0.06 (0.00-0.20) K/uL Immature Gran # (Auto) 0.03 0.06 (0.01-0.20) K/uL Absolute Nucleated RBC 0.02 0.02 (0.00-0.12) K/uL Nucleated RBC % (auto) 0.3 0.2 % Polychromasia 1+ Sodium 142 (136-145) mmol/L Potassium 4.1 (3.5-5.1) mmol/L Chloride 114 H (98-107) mmol/L Carbon Dioxide 23 (21-32) mmol/L Anion Gap 5 (3-11) BUN 57 H D (6-23) mg/dl Creatinine 1.90 H (0.6-1.4) mg/dl Est Cr Clr Drug Dosing 29.5 ml/min eGFR 34.14 BUN/Creatinine Ratio 30.0 H (10-20) Glucose 147 H (70-99(Fasting)) mg/dl Calcium 8.8 (8.6-10.3) mg/dl Total Bilirubin 1.2 H (0.2-1.0) mg/dl AST 22 (13-39) U/L ALT 17 (7-52) U/L Alkaline Phosphatase 49 (34-104) U/L Troponin I High Sens 382.9 H* 338.0 H* (0-20) pg/ml Total Protein 5.0 L (6.0-8.3) gm/dl Albumin 3.3 L (3.4-5.0) gm/dl Globulin 1.7 L (2.5-4.0) gm/dl Albumin/Globulin Ratio 1.9 (0.9-2) Blood Type Antibody Screen Crossmatch 12/09/24 12/08/24 Range/Units 11:59 03:10 WBC 12.61 H (4.8-10.8) K/ul RBC 2.66 L (4.70-6.10) M/uL Hgb 8.4 L (14.0-18.0) g/dl Hct 25.6 L (42.0-52.0) % MCV 96.2 (80.0-100.0) fL MCH 31.6 (25.0-34.0) pg MCHC 32.8 (32.0-36.0) g/dL RDW Std Deviation 57.9 H (36.4-46.3) fL RDW Coeff of Jeanmarie 16.9 H (11.5-14.5) % Plt Count 114 L (130-400) K/uL MPV 10.8 (9.4-12.4) fL Immature Gran % (Auto) 0.4 % Neut % (Auto) 72.3 % Lymph % (Auto) 17.0 % Cameron % (Auto) 9.0 % Eos % (Auto) 0.8 % Baso % (Auto) 0.5 % Neut # (Auto) 9.13 H (1.40-6.50) K/uL Lymph # (Auto) 2.14 (1.20-3.40) K/uL Cameron # (Auto) 1.13 H (0.11-0.59) K/uL Eos # (Auto) 0.10 (0.00-0.50) K/uL Baso # (Auto) 0.06 (0.00-0.20) K/uL Immature Gran # (Auto) 0.05 (0.01-0.20) K/uL Absolute Nucleated RBC 0.03 (0.00-0.12) K/uL Nucleated RBC % (auto) 0.2 % Polychromasia Sodium (136-145) mmol/L Potassium (3.5-5.1) mmol/L Chloride (98-107) mmol/L Carbon Dioxide (21-32) mmol/L Anion Gap (3-11) BUN (6-23) mg/dl Creatinine (0.6-1.4) mg/dl Est Cr Clr Drug Dosing ml/min eGFR BUN/Creatinine Ratio (10-20) Glucose (70-99(Fasting)) mg/dl Calcium (8.6-10.3) mg/dl Total Bilirubin (0.2-1.0) mg/dl AST (13-39) U/L ALT (7-52) U/L Alkaline Phosphatase (34-104) U/L Troponin I High Sens 305.2 H* D (0-20) pg/ml Total Protein (6.0-8.3) gm/dl Albumin (3.4-5.0) gm/dl Globulin (2.5-4.0) gm/dl Albumin/Globulin Ratio (0.9-2) Blood Type O Positive Antibody Screen NEGATIVE Crossmatch See Detail PG Care Time/CCT Total # of Minutes Spent Total Time Spent with Patient: Total time spent is greater than 50% in coordination of care (as documented) at patient's floor/unit and/or counseling patient: Coding Level of Care Code 88421 SUB INP/OBS CARE 2/35MIN Diagnoses Melena K92.1 Coffee ground emesis K92.0
[2024-12-10 13:16] LABS: Hematocrit (blood only) 26.5 % (42.0-52.0); Hemoglobin 8.8 g/dl (14.0-18.0)
[2024-12-10 14:35] VITALS: RESP 18
--- NOTE | 2024-12-10 15:25 | Hospitalist Progress Note ---
"Date of Service December 10, 2024 Assessment & Plan (1) Type 2 diabetes mellitus: (2) Atrial fibrillation: (3) Hypertension: (4) Hyperlipidemia: (5) Orthostatic hypotension: (6) Upper GI bleed: (7) Near syncope: Plan Patient is an 84 y/o M w/ PMHx of Gout, HTN, HLD, CKD, A-fib after recent MV repair w/ MV clip implantation (on Eliquis), DM-2, and CAD (CABG x3) who was admitted due to significant orthostatism with subsequent near syncope today. Upper GI bleed/acute blood loss anemia due to circulating anticoagulants (Eliquis) Orthostatism | Hypotension - Patient w/ intermittent hypotension since 08/2024 with today having significant orthostatism - TTE done in [facility] (07/2024) and showed mildly dilated LV with low normal systolic function, no regional wall motion abnormalities, EF of 50%, RV dilation w/ normal function, and mild MV regurgitation - Hgb in PCP office from 09/2024 showing level of 14 - In ED, BP decreased to 60/40 when sitting up/standing; patient was placed with head of bed leaning down with improvement in BP to 120s systolic and 70s diastolic - 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 - CTAP also ordered to r/o retroperitoneal bleed give patient had been on Eliquis 2.5 mg bid for a-fib; still pending Patient had EGD 12/09. Showed nonbleeding gastric ulcer IV Protonix being switched over to p.o. today 12/10 Continue to trend H&H Patient received a unit of blood transfusion on 12/08 and 12/10 Per GI. Patient will be able to resume Eliquis in 2 to 3 days if needed. No NSAIDs Will be discharged on Protonix 40 mg twice daily for a month long-term PPI prophylaxis at 40 mg daily A-fib - Currently rate controlled - Will hold metoprolol in the setting of hypotension -Will hold Eliquis in the setting of UGIB Follow-up with Dr. Wallace in 1 week to decide on Eliquis start time Elevated troponins -Troponins trended up. Peaked - No chest pain or anginal sxs - Likely demand ischemia given hypotension and current UGIB Cardiology on board. Was cleared for EGD Resume metoprolol when blood pressure tolerates HTN - Hold home meds DM-2 - No home insulin and not currently on meds - Will add Hgb A1c to am labs CKD - PCP office labs w/ Cr of 1.8; no other labs here to establish baseline - Cr on admission was 1.98 - Possible pre-renal MARLIN - Monitor am labs HLD | CAD - Hold atorvastatin while NPO Dispo: Likely discharge 12/11 Diet: Advance diet as tolerated VTE ppx: SCD; chemoprophylaxis contraindicated in the setting of UGIB Code Status: DNR/DNI Admission and Anticipated Discharge Date Admission Date: December 08, 2024 Subjective Patient was seen and examined at 8:45 AM. He stated that he feels well overall. He did have black stools but does not feel dizzy or lightheaded. No chest pain. No shortness of breath. Noted that his hemoglobin is low and he was ordered a unit of blood. Review of Systems Review of Systems: All systems reviewed & are unremarkable except as noted in Subjective Physical Exam Physical Exam: General: Awake, conversant Heart: S1, S2/regular rate and rhythm, no murmur rubs or gallops Lungs: Clear to auscultation bilaterally. Normal effort Abdomen: Soft/nontender/nondistended. No hepatosplenomegaly Extremities: No clubbing/cyanosis. No edema Behavior: Appropriate, cooperative Results & Data Results & Data Vital Signs (Past 12 Hours) Vital Signs Temp Pulse Pulse Resp BP BP BP 12/10/24 15:20 70 12/10/24 14:34 36.6 C 67 18 118/64 12/10/24 10:55 36.4 C L 63 16 95/52 L 12/10/24 08:26 36.7 C 84 16 119/68 12/10/24 08:24 12/10/24 08:11 36.8 C 97 H 16 106/64 12/10/24 07:55 37.0 C 83 16 111/57 L 12/10/24 07:34 36.4 C L 75 18 119/72 12/10/24 07:02 83 12/10/24 03:51 36.4 C L 72 18 103/64 Pulse Ox O2 Del Method 12/10/24 15:20 12/10/24 14:34 98 Room Air 12/10/24 10:55 98 Room Air 12/10/24 08:26 98 12/10/24 08:24 Room Air 12/10/24 08:11 95 12/10/24 07:55 98 12/10/24 07:34 98 Room Air 12/10/24 07:02 12/10/24 03:51 93 Room Air Laboratory Results Abnormal lab results 12/08/24 12/09/24 12/10/24 Range/Units 03:10 17:38 00:28 RBC 2.74 L (4.70-6.10) M/uL Hgb 8.7 L 7.5 L (14.0-18.0) g/dl Hct 26.6 L 22.6 L (42.0-52.0) % RDW Std Deviation 58.7 H (36.4-46.3) fL RDW Coeff of Jeanmarie 17.0 H (11.5-14.5) % Plt Count 115 L (130-400) K/uL Neut # (Auto) 7.02 H (1.40-6.50) K/uL Harlan # (Auto) 0.95 H (0.11-0.59) K/uL Chloride (98-107) mmol/L BUN (6-23) mg/dl Creatinine (0.6-1.4) mg/dl BUN/Creatinine Ratio (10-20) Glucose (70-99(Fasting)) mg/dl Total Bilirubin (0.2-1.0) mg/dl Troponin I High Sens 338.0 H* (0-20) pg/ml Total Protein (6.0-8.3) gm/dl Albumin (3.4-5.0) gm/dl Globulin (2.5-4.0) gm/dl Crossmatch See Detail 12/10/24 12/10/24 Range/Units 05:18 12:59 RBC 2.36 L (4.70-6.10) M/uL Hgb 7.5 L 8.8 L (14.0-18.0) g/dl Hct 22.6 L 26.5 L (42.0-52.0) % RDW Std Deviation 56.3 H (36.4-46.3) fL RDW Coeff of Jeanmarie 16.7 H (11.5-14.5) % Plt Count 97 L (130-400) K/uL Neut # (Auto) (1.40-6.50) K/uL Harlan # (Auto) 0.88 H (0.11-0.59) K/uL Chloride 114 H (98-107) mmol/L BUN 57 H D (6-23) mg/dl Creatinine 1.90 H (0.6-1.4) mg/dl BUN/Creatinine Ratio 30.0 H (10-20) Glucose 147 H (70-99(Fasting)) mg/dl Total Bilirubin 1.2 H (0.2-1.0) mg/dl Troponin I High Sens 382.9 H* 372.8 H* (0-20) pg/ml Total Protein 5.0 L (6.0-8.3) gm/dl Albumin 3.3 L (3.4-5.0) gm/dl Globulin 1.7 L (2.5-4.0) gm/dl Crossmatch PG Care Time/CCT Total # of Minutes Spent Total Time Spent with Patient: Total time spent is greater than 50% in coordination of care (as documented) at patient's floor/unit and/or counseling patient: Coding Level of Care Code 48503 SUB INP/OBS CARE 2/35MIN Diagnoses Type 2 diabetes mellitus E11.9 Atrial fibrillation I48.91 Hypertension I10 Hyperlipidemia E78.5 Orthostatic hypotension I95.1 Upper GI bleed K92.2 Near syncope R55"
[2024-12-10] MEDS: PANTOprazole 40 MG TAB PO SCH (20:33)
[2024-12-11 03:51] VITALS: O2SAT 98
[2024-12-11 05:58] LABS: Basophils # (auto) 0.03 K/uL (0.00-0.20); Basophils % (auto) 0.4 %; Eosinophils # (auto) 0.08 K/uL (0.00-0.50); Eosinophils % (auto) 1.1 %; Hematocrit (blood only) 24.7 % (42.0-52.0); Hemoglobin 8.5 g/dl (14.0-18.0); Immature Granulocytes # (auto) 0.03 K/uL (0.01-0.20); Immature Granulocytes % (auto) 0.4 %; Lymphocytes # (auto) 1.41 K/uL (1.20-3.40); Mean Corpuscular Hemoglobin 32.6 pg (25.0-34.0); Mean Corpuscular Hgb Conc 34.4 g/dL (32.0-36.0); Mean Corpuscular Volume 94.6 fL (80.0-100.0); Mean Platelet Volume 11.1 fL (9.4-12.4); Monocytes % (auto) 12.1 %; Neutrophils # (auto) 4.97 K/uL (1.40-6.50); Platelet Count 103 K/uL (130-400); RDW Coefficient of Variation 16.5 % (11.5-14.5); RDW Standard Deviation 54.8 fL (36.4-46.3); Red Blood Count 2.61 M/uL (4.70-6.10); White Blood Count 7.42 K/ul (4.8-10.8)
[2024-12-11 06:18] LABS: Albumin Globulin Ratio 1.9 (0.9-2); Albumin Level 3.4 gm/dl (3.4-5.0); BUN Creatinine Ratio 23.6 (10-20); Bilirubin,Total 1.3 mg/dl (0.2-1.0); Calcium 8.4 mg/dl (8.6-10.3); Creatinine Clr Calc Pharmacy 28.6 ml/min; Globulin 1.8 gm/dl (2.5-4.0); Potassium 3.8 mmol/L (3.5-5.1); Total Protein 5.2 gm/dl (6.0-8.3)
[2024-12-11 07:38] VITALS: PULSE 84; TEMP 97.7
[2024-12-11 09:35] VITALS: BP 120/69
--- NOTE | 2024-12-11 09:35 | Discharge Summary ---
"Date of Service December 11, 2024 Admission HPI Per Admitting Provider Patient is an 84 y/o M w/ PMHx of Gout, HTN, HLD, CKD, A-fib after recent MV repair w/ MV clip implantation (on Eliquis), DM-2, and CAD (CABG x3) who was arrived to the ED after experiencing near syncopal episode at home while walking to the bathroom. Patient states that, since early in the morning, patient had been feeling clammy, warm, and nauseous when standing. At around 7 pm, his symptoms worsened and when he was going to the bathroom developed nausea/diaphoresis/flushing/weakness and felt like he was going to pass out. On the days leading to this, patient had been having similar but more mild sxs, and states he had noted his stool had been darker than usual with today having a bm that was almost black. Denies having epigastric pain, decreased PO intake, fevers, chills, weakness on one side og his body, difficulty with speech, chest pain, SOB/[place], palpitations, or any other systemic sxs. ED Course: Given 1 L NSS bolus, Protonix 80 mg IV, Pepcid 20 mg IV; patient with episode of coffee ground emesis during my evaluation, after this 1L LR bolus given as well as dose of Zofran Labs/Imaging: CBC w/ leukocytosis of 11 with neutrophilic predominance, hgb of 9.7, plt of 126. CMP with no significant electrolyte abnormalities, Cr of 1.98, BUN of 98, and bsg of 217. Troponin of 33.5 which increased to 41.9 in 2-hour recheck. Respiratory biofire negative. CTAP ordered but not yet done at this time. Medical History: [Reviewed] Medications: [Reviewed] Surgical History: [Reviewed] Family history: [Reviewed] Allergies: [Reviewed] Social History: [Reviewed] Code Status: DNR/DNI Admission Exam Per Admitting Provider GENERAL: AAOx4, afebrile, calm and cooperative, afebrile, NAD HEAD: AT, NC EYES: DON, EOM intact THROAT: normal to visual inspection CHEST: symmetric chest expansions with respirations CARDIO: irregular rhythm, no r/m/g PULMONARY: CTA, normal respiratory effort, no respiratory distress GI: soft, NT/ND : no power EXTREMITIES: no swelling or calf tenderness in b/l LE SKIN: no rashes, hematomas, lacerations, or other lesions Principal Diagnosis Upper GI bleed due to gastric ulcer in the in the setting of circulating anticoagulants (Eliquis) Acute blood loss anemia requiring blood transfusions Orthostatic hypotension due to GI bleed Demand ischemia Discharge Exam General: Awake, conversant Heart: S1, S2/regular rate and rhythm, no murmur rubs or gallops Lungs: Clear to auscultation bilaterally. Normal effort Abdomen: Soft/nontender/nondistended. No hepatosplenomegaly Extremities: No clubbing/cyanosis. No edema Behavior: Appropriate, cooperative Discharge Data Allergies Allergy/AdvReac Type Severity Reaction Status Date / Time No Known Allergies Allergy Verified 12/09/24 14:24 Consultations 12/08/24 03:14 ED Decision to Admit Stat 12/08/24 05:21 Consult Gastroenterology Routine 12/09/24 09:07 Consult Cardiology Routine Procedures Performed Operation Date: 12/09/24 16:30 Actual Procedures p EGD Biopsy Cytology - Librado Coffey MD Ordered Studies Abdomen/Pelvis CT 12/08/24 02:34 EXAM: CT abd pelvis wo con CLINICAL HISTORY: ANEMIA TECHNIQUE: Contiguous axial images were obtained from the level of the diaphragm to the pubic symphysis without intravenous or oral contrast. Coronal and sagittal reconstructions were likewise performed and indicated to increase the sensitivity for detecting clinically relevant pathology. CT scan was performed according to ALARA (as low as reasonable achievable). COMPARISON: No FINDINGS: The visualized lung bases show mild cardiomegaly. Evaluation of the abdominal and pelvic visceral organs is limited without intravenous contrast. The unenhanced liver, spleen, pancreas, and adrenal glands are grossly unremarkable. Few calcific foci noted in the tail of pancreas. Small splenunculus along lower pole of spleen. The gallbladder is present. The kidneys are normal in size and attenuation without obvious calcification. Dilated and tortuous left ureter with mild left hydronephrosis and renal cortical thinning. Bilateral perinephric stranding. Large exophytic cortical cyst of size 4.0 x 4.8cm along the lower pole of left kidney. Mildly prominent left distal ureter. No adenopathy or fluid collections are seen. No evidence of focal or diffuse bowel wall thickening or evidence of bowel obstruction is seen. The appendix is visualized in the right lower quadrant and appears within normal limits. The aorta is normal in caliber. The urinary bladder is normal in contour. Mild eccenteric wall thickening noted along the base of bladder predominantly on left side. Pelvic viscera are grossly unremarkable. No aggressive appearing osseous lesions are identified. IMPRESSION: 1. Eccenteric wall thickening of base of bladder predominantly on left side. Suggest- Correlation with ultrasound of distended bladder. 2. Left moderate to gross hydroureteronephrosis with no radiodense left ureteric calculus. 3. Bilateral perinephric stranding. 4. Left renal exophytic cortical cyst at lower pole. Electronically signed by Young Corea 12-08-2024 06:18 AM 12/08/24 02:34 CT Abd and Pelvis [CT abd pelvis wo con] Stat Hospital Course (1) Type 2 diabetes mellitus: (2) Atrial fibrillation: (3) Hypertension: (4) Hyperlipidemia: (5) Orthostatic hypotension: (6) Upper GI bleed: (7) Near syncope: Plan Patient is an 84 y/o M w/ PMHx of Gout, HTN, HLD, CKD, A-fib after recent MV repair w/ MV clip implantation (on Eliquis), DM-2, and CAD (CABG x3) who was admitted due to significant orthostatism with subsequent near syncope today. Upper GI bleed/acute blood loss anemia due to circulating anticoagulants (Eliquis) Orthostatism | Hypotension - Patient w/ intermittent hypotension since 08/2024 with today having significant orthostatism - TTE done in [facility] (07/2024) and showed mildly dilated LV with low normal systolic function, no regional wall motion abnormalities, EF of 50%, RV dilation w/ normal function, and mild MV regurgitation - Hgb in PCP office from 09/2024 showing level of 14 - In ED, BP decreased to 60/40 when sitting up/standing; patient was placed with head of bed leaning down with improvement in BP to 120s systolic and 70s diastolic - 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 - CTAP ruled out retroperitoneal bleed Patient had EGD 12/09. Showed nonbleeding gastric ulcer IV Protonix being switched over to p.o. 12/10 Patient received a unit of blood transfusion on 12/08 and 12/10 Per GI. Patient will be able to resume Eliquis in 2 to 3 days if needed. No NSAIDs Will be discharged on Protonix 40 mg twice daily for a month followed by long- term PPI prophylaxis at 40 mg daily A-fib - Currently rate controlled -Metoprolol was resumed at the time of -Will hold Eliquis in the setting of UGIB Follow-up with Dr. Wallace in 1 week to decide on Eliquis start time Elevated troponins -Troponins trended up. Peaked - No chest pain or anginal sxs - Likely demand ischemia given hypotension and current UGIB Cardiology on board. Was cleared for EGD Resumed metoprolol at the time of discharge HTN -Initially hold blood pressure medications were held as he was hypotensive Metoprolol was resumed at the time of discharge Losartan still being held. May be resumed by PCP upon follow-up DM-2 - No home insulin and not currently on meds - Will add Hgb A1c to am labs CKD - PCP office labs w/ Cr of 1.8; no other labs here to establish baseline - Cr on admission was 1.98 -Creatinine remained stable at that range HLD | CAD - Hold atorvastatin while NPO Disposition: Discharge to home today Total Time Total Time Spent Total Time Spent (In Minutes): 35 Discharge Plan Discharge Items Patient Disposition: Home - Self-Care Reason For Visit: NEAR SYNCOPE Discharge Diagnosis: Upper GI bleed due to gastric ulcer in the in the setting of circulating anticoagulants (Eliquis) Acute blood loss anemia requiring blood transfusions Orthostatic hypotension due to GI bleed Demand ischemia Activity: Resume your previous activity Non-emergency contact: Primary Care Provider Call non-emergency contact if: you have any medication questions and your symptoms worsen Follow-up/Referrals: Ryan Wallace DO [Physician] - Venus Tsang DO [Primary Care Provider] - 12/15/24 2:45 pm (Hospital follow up scheduled for December 15, 2024 at 2:45pm) Diet: Carb Consistent or DM2 and Heart Healthy Addtl Attending Provider Instructions: Advised to follow-up with PCP in 1 week Advised to follow-up with adding machine operator in 1 week Advised to note that the Eliquis has been held for now because of the GI bleed. This may be resumed by your PCP or adding machine operator upon follow-up Avoid [id number] nonsteroidal pain medications like Advil, Aleve, ibuprofen, Motrin, Naprosyn, naproxen Pending Studies at Discharge: No Stand-Alone Forms: My [facility] Medications and DC Order Prescriptions: New pantoprazole 40 mg Tablet,Delayed Release (Dr/Ec) 40 mg PO BID 30 Days Qty: 60 0RF Continued atorvastatin 80 mg Tablet 80 mg PO HS ascorbic acid (vitamin C) [Vitamin C] 1,000 mg Tablet 1 g PO QAM allopurinol 300 mg Tablet 300 mg PO QAM metoprolol succinate 25 mg Tablet Extended Release 24 Hr 12.5 mg PO HS Metamucil (sugar) Powder 1 tbsp PO PM ranolazine 500 mg Tablet Extended Release 12 Hr 500 mg PO BID Centrum Silver Men [id number] mcg Tablet 1 tab PO QAM Macular Health Formula 5-1-7.5 mg Capsule 1 cap PO QAM Held losartan 25 mg Tablet 25 mg PO PM Hold Instructions: Resume on 12/25/24. hold till 2/6 or earlier if PCP/Freelance Operator resumes it sooner Discontinued Eliquis 2.5 mg Tablet 2.5 mg PO BID Discharge Orders: Discharge Order (Routine); Ordered 12/11/24 Ordered By: Frank Andersen/Other Patient Handouts: GI Bleeding Causes and Tests, ED Lower GI Bleeding (Stable), ED Upper GI Bleeding (Stable) Admission Data Admit Date/Time: 12/08/24 03:06 Attending Provider: Frank Corcoran Admit Provider: Magi Alfred Primary Care Provider: Venus Tsang Other Providers: Bautista Rivera; Librado Coffey; Ryan Wallace; Shima Nascimento; Helen Wayne Other Interventions: Discharge Summary Assessment (RN) Last Done: 12/09/24 15:41"
--- NOTE | 2024-12-11 10:29 | Cardiology Progress Note ---
Date of Service December 10, 2024 Assessment & Plan (1) Preoperative cardiovascular examination: (2) NSTEMI (non-ST elevated myocardial infarction): (3) Acute upper GI bleed: (4) Acute hypotension: (5) Near syncope: (6) Atrial fibrillation: Plan Receiving 1 unit of blood. Anticipate possible DC tomorrow if he remains stable. To follow up in office. Admission and Anticipated Discharge Date Admission Date: December 08, 2024 Subjective Reviewed results of EGD showing large ulcer. Plan to keep him off NOAC for several days until anemia stabilizes. He has OP f/u appt with cardiology in early december. I discussed with him staying off the Eliquis for now. Also discussed consideration for Watchman given bleeding age and overall risk. This can be reviewed with his primary cardiology team as OP Physical Exam Physical Exam: AAO in NAD comfortable Results & Data Vital Signs (Past 12 Hours) Vital Signs Temp Pulse Resp BP BP Pulse Ox O2 Del Method 12/11/24 09:34 36.5 C 84 18 120/59 L 120/69 98 12/11/24 07:37 36.5 C 84 18 120/59 L 98 Room Air 12/11/24 03:50 36.6 C 79 18 120/69 98 Room Air 12/10/24 23:48 36.8 C 71 18 109/60 97 Room Air
== END 2024-12-11 10:06 | disposition home or self-care (01) | DRG 813 ==
LOC: SUATTDRO → ED 00:22 → 2S 03:06 → SUATTDRO 03:06 → 2S 04:25